=== PATIENT | female | born 1940 | race Hispanic/Latino ===

== ENCOUNTER 2016-07-02 17:57 | Emergency (ER) | payer MEDICARE, MEDICAID ==
[2016-07-02 17:58] VITALS: BMI 23.7
--- NOTE | 2016-07-02 18:28 | ED PDOC ---
Arrival/HPI - General Chief Complaint: Upper Extremity Problem/Injury Time Seen by Provider: 07/02/16 18:22 Historian: Patient - History of Present Illness Narrative History of Present Illness (Text): 07/02/16 18:25 This 76 yo female presents to this ED with family member c/o left shoulder pain x [employer]. Patient stated she tripped and fell down on the floor at home after tripping on a backpack. Patient denies head injury, neck pain, syncope, dizziness, or abnormal gait. Denies elbow pain, wrist, hand pain, back pain, hip pain, knee pain, or ankle pain. Denies abrasion. Time/Duration: Prior to Arrival Quality: Aching Context: Home Past Medical History - Provider Review Nursing Documentation Reviewed: Yes - Infectious Disease Hx of Infectious Diseases: None - Tetanus Immunization Tetanus Immunization: Unknown - Cardiac Hx Hypertension: Yes - Pulmonary Hx Respiratory Disorders: Yes (has home nebulizer machine) Hx Asthma: Yes Hx Chronic Obstructive Pulmonary Disease (COPD): Yes Hx Emphysema: Yes - HEENT Hx HEENT Disorder: Yes (eyeglasses) Hx Glaucoma: Yes - Musculoskeletal/Rheumatological Hx Falls: No - Gastrointestinal Hx Gastrointestinal Disorders: Yes Hx Colitis: Yes Other/Comment: dx with colitis around 5 yrs ago/has flare ups from time to time - Psychiatric Hx Anxiety: Yes Hx Depression: No Hx Emotional Abuse: No Hx Physical Abuse: No Hx Substance Use: No - Past Surgical History Past Surgical History: No Previous - Surgical History Hx Tonsillectomy: Yes - Anesthesia Hx Anesthesia: Yes Hx Anesthesia Reactions: No Hx Malignant Hyperthermia: No - Suicidal Assessment Feels Threatened In Home Enviroment: No Family/Social History - Physician Review Nursing Documentation Reviewed: Yes Family/Social History: No Known Family HX Smoking Status: Former Smoker Hx Alcohol Use: No Hx Substance Use: No Hx Substance Use Treatment: No Allergies/Home Meds Allergies/Adverse Reactions: Allergies FISH Allergy (Severe, Verified 07/02/16 18:12) SWELLING pt reports that she had fish sticks recently and had to come to the hospital due to the swelling pt previously had no allergies sulfur dioxide Allergy (Verified 07/02/16 18:13) ANAPHYLAXIS Home Medications: Home Meds Medication Instructions Recorded Confirmed Bimatoprost [Lumigan] 1 drop BOTHEYES HS 11/26/12 03/23/16 Mesalamine [Lialda] 1.2 gm PO TID 11/26/12 03/23/16 Albuterol Sulfate [Proair Hfa] 0.09 mg IH PRN PRN 03/23/16 03/23/16 Azithromycin [Zithromax] 250 mg PO DAILY 03/23/16 03/23/16 Clonidine HCl [Catapres] 0.1 mg PO Q8 03/23/16 03/23/16 Diclofenac Sodium [Voltaren] 1 % TP TID 03/23/16 03/23/16 Furosemide [Lasix] 40 mg PO DAILY 03/23/16 03/23/16 Levofloxacin [Levaquin] 500 tab PO DAILY 03/23/16 03/23/16 Methylprednisolone [Medrol Dose 0 mg PO DAILY 03/23/16 03/23/16 Pack (21 tabs)] Montelukast [Singulair] 10 mg PO DAILY 03/23/16 03/23/16 Rosuvastatin Calcium [Crestor] 10 mg PO DAILY 03/23/16 03/23/16 Telmisartan [Micardis] 80 mg PO DAILY 03/23/16 03/23/16 Tiotropium [Spiriva] 2 puff IH DAILY 03/23/16 03/23/16 amLODIPine [Norvasc] 10 mg PO DAILY 03/23/16 03/23/16 Review of Systems - Review of Systems Constitutional: Normal. absent: Fatigue, Weight Change, Fevers Eyes: Normal ENT: Normal Respiratory: Normal. absent: SOB, Cough Cardiovascular: Normal. absent: Chest Pain, Palpitations Gastrointestinal: Normal. absent: Abdominal Pain, Nausea, Vomiting Genitourinary Female: Normal. absent: Dysuria, Frequency, Hematuria Musculoskeletal: Other ((+) left shoulder pain) Skin: Normal. absent: Rash Neurological: Normal. absent: Headache, Dizziness, Focal Weakness, Gait Changes , Speech Changes, Facial Droop, Disequilibrium, Seizure Endocrine: Normal Hemo/Lymphatic: Normal Psychiatric: Normal Physical Exam Vital Signs Temp Pulse Resp BP Pulse Ox 07/02/16 18:09 97.4 F L 69 18 132/53 L 98 Temperature: Afebrile Blood Pressure: Normal Pulse: Regular Respiratory Rate: Normal Appearance: Positive for: Well-Appearing, Non-Toxic, Comfortable Pain Distress: None Mental Status: Positive for: Alert and Oriented X 3 - Systems Exam Head: Present: Atraumatic, Normocephalic, Other (No raccoon sign. no meza sign) Pupils: Present: PERRL, Other (No hyphema) Extroacular Muscles: Present: EOMI Conjunctiva: Present: Normal Ears: Present: Normal, NORMAL TM, Normal Canal, Other (No hemotympanum). No: Erythema, TM Bulging, Fluid, TM Perf Mouth: Present: Moist Mucous Membranes Pharnyx: Present: Normal Neck: Present: Normal Range of Motion, Trachea Midline. No: Meningeal Signs, MIDLINE TENDERNESS, Paraspinal Tenderness Respiratory/Chest: Present: Clear to Auscultation, Good Air Exchange. No: Respiratory Distress, Accessory Muscle Use, Wheezes, Decreased Breath Sounds, Rales, Retracting Cardiovascular: Present: Regular Rate and Rhythm, Normal S1, S2. No: Murmurs Abdomen: No: Tenderness Back: Present: Normal Inspection. No: CVA Tenderness, Midline Tenderness, Paraspinal Tenderness, Pain with Leg Raise Upper Extremity: Present: Normal ROM, NORMAL PULSES, Tenderness ((+) left anterior shoulder swelling and tender on palpation. ), Swelling (mild swelling left anterior shoulder.), Neurovascularly Intact, Capillary Refill < 2s, Other ( No elbow, clavicular, wrist, hand or fingers tenderness). No: Cyanosis, Edema Lower Extremity: Present: Normal Inspection. No: Edema Neurological: Present: GCS=15, CN II-XII Intact, Speech Normal, Motor Func Grossly Intact, Normal Sensory Function, Normal Cerebellar Funct, Norm Deep Tendon Reflexes, Gait Normal, Memory Normal Skin: Present: Warm, Dry, Normal Color. No: Rashes Psychiatric: Present: Alert, Oriented x 3 Medical Decision Making ED Course and Treatment: 07/02/16 18:31 Family member of patient refused to allow patient to have pain medication till patient gets a x-rays, and revaluated. 07/02/16 19:46 Patient does not want narcotic pain medication. She says she has gastritis, so she can not take NSAIDs. She agrees to take OTC Tylenol for pain as needed. I spoke with Dr. Marcos Orthopedist who agrees with Maegan, and to f/u his office in one week. Patient stated she has an orthopedist and she will f/u with ortho office tomorrow. Re-evaluation Time: 19:45 Reassessment Condition: Re-examined, Improved - RAD Interpretation Narrative RAD Interpretations (Text): 07/02/16 19:47 Shoulder x-rays: Head humerus Fx. minimum displaced. Radiology Orders: 07/02/16 18:22 SHOULDER LEFT [RAD] Stat - Medication Orders Current Medication Orders: Discontinued Medications Ketorolac Tromethamine (Toradol) 15 mg IM STAT STA Stop: 07/02/16 19:28 Last Admin: 07/02/16 19:38 Dose: 15 MG IM Administration Charges Document 07/02/16 19:38 RD (Rec: 07/02/16 19:38 RD [id number]) Injection Site MAR Injection Site Left Deltoid Charges for Administration # of IM Administrations 1 Disposition/Present on Arrival - Present on Arrival Any Indicators Present on Arrival: No History of DVT/PE: No History of Uncontrolled Diabetes: No Urinary Catheter: No History of Decub. Ulcer: No History Surgical Site Infection Following: None - Disposition Have Diagnosis and Disposition been Completed?: Yes Diagnosis: Humerus head fracture Disposition: HOME/ ROUTINE Disposition Time: 19:47 Patient Plan: Discharge Patient Problems: Current Active Problems Problem Status Diagnosed Asthmatic bronchitis Acute COPD exacerbation Acute Condition: GOOD Discharge Instructions (ExitCare): Arm Fracture in Adults (ED) Additional Instructions: Call Orthopedist doctor for follow up visit next week. Take OTC Tylenol for pain as needed. Do not remove arm sling, Return to emergency if symptoms worsen. Referrals: Jun Montana MD [Primary Care Provider] - Follow up with primary Jean Paul Marcos MD [Staff Provider] - Follow up with primary
[2016-07-02 18:29] VITALS: BP 132/53; PULSE 69; RESP 18; TEMP 97.4; O2SAT 98
--- NOTE | 2016-07-03 09:36 | RAD ---
PROCEDURE: Radiographs of the Left Shoulder HISTORY: pain s/p fall COMPARISON: 02/19/2015 FINDINGS: BONES: There is the fracture of the humeral neck. There is separation of a fragment along the lateral aspect of the humeral head. The articular surface is intact JOINTS: Normal. Glenohumeral and acromioclavicular joints preserved. No osteoarthritis. SOFT TISSUES: Normal. OTHER FINDINGS: None. IMPRESSION: There is the fracture of the humeral neck. There is separation of a fragment along the lateral aspect of the humeral head. The articular surface is intact
== END 2016-07-02 19:55 | disposition home or self-care (01) ==
LOC: ED 17:57
DX: S42.292A Other displaced fracture of upper end of left humerus, initial encounter for closed fracture (principal); W01.198A Fall on same level from slipping, tripping and stumbling with subsequent striking against other object, initial encounter; Y92.009 Unspecified place in unspecified non-institutional (private) residence as the place of occurrence of the external cause; I10 Essential (primary) hypertension; Z87.891 Personal history of nicotine dependence
CPT/HCPCS: 29240; 73030; 96372; 99282; J1885

== ENCOUNTER 2017-06-07 14:41 | Emergency (ER) | payer MEDICARE, MEDICAID ==
[2017-06-07 14:42] VITALS: BMI 23.7
[2017-06-07 15:16] VITALS: TEMP 97.8
--- NOTE | 2017-06-07 16:14 | RAD ---
HISTORY: Chest pain COMPARISON: 11/12/2016. FINDINGS: LUNGS: The lungs are hyperinflated and there is peribronchial thickening with chronic changes in both lungs. No focal consolidation. There is probable bronchiectasis in the right lower lobe. PLEURA: No significant pleural effusion identified, no pneumothorax apparent. CARDIOVASCULAR: Normal. OSSEOUS STRUCTURES: No significant abnormalities. VISUALIZED UPPER ABDOMEN: Normal. OTHER FINDINGS: None. IMPRESSION: No active pulmonary disease. Suspect bronchiectasis in the right lower lobe. COPD.
[2017-06-07 16:29] LABS: ALB/GLOB RATIO 1.2 (1.1-1.8); ALBUMIN 3.8 g/dL (3.0-4.8); ALT/SGPT 36 U/L (7-56); AST/SGOT 31 U/L (14-36); BLOOD UREA NITROGEN 13 mg/dL (7-21); CALCIUM 9.8 mg/dL (8.4-10.5); GFR AFRICAN-AMERICAN > 60; GFR NON-AFRICAN AMERICAN > 60
[2017-06-07] MEDS ORDERED: Sodium Chloride 0.9% 1,000 ML IV SCH (16:30)
[2017-06-07 16:35] LABS: TROPONIN I 0.03 ng/mL
[2017-06-07 16:40] LABS: BASO # 0.03 K/mm3 (0.0-2.0); BASO % 0.4 % (0.0-3.0); EOS # 0.3 (0.0-0.7); EOS % 4.5 % (1.5-5.0); GRAN # 5.28 (1.4-6.5); GRAN % 74.3 % (50.0-68.0); HEMOGLOBIN 12.7 g/dL (12.0-16.0); LYMPH # 0.8 (1.2-3.4); LYMPH % 11.1 % (22.0-35.0); MEAN CELL VOLUME 88.1 fl (80.0-105.0); MEAN CORPUSCULAR HEMOGLOBIN 29.7 pg (25.0-35.0); MEAN CORPUSCULAR HGB CONC 33.7 g/dl (31.0-37.0); MONO # 0.7 (0.1-0.6); MONO % 9.7 % (1.0-6.0); RBC 4.28 10^6/uL (3.5-6.1); RED CELL DISTRIBUTION WIDTH 13.2 % (11.5-14.5); WHITE BLOOD COUNT 7.1 10^3/ul (4.5-11.0)
[2017-06-07 17:08] LABS: B-TYPE NATRIURETIC PEPTIDE 225 pg/mL (0-450)
[2017-06-07 17:59] VITALS: RESP 18; O2SAT 98
--- NOTE | 2017-06-07 18:02 | ED PDOC ---
Arrival/HPI - General Chief Complaint: Shortness Of Breath Time Seen by Provider: 06/07/17 15:14 Historian: Patient - History of Present Illness Narrative History of Present Illness (Text): 06/07/17 17:56 Cammie Beltran is a 77 year old female who presents to the emergency department complaining of shortness of breath after walking outside and cold air was hitting her face today. Patient states that he has been experiencing intermittent shortness of breath for the past few weeks and coughing for 2-3 weeks that has stopped since. Patient denies any chest pain, abdominal pain, vomiting, fever, or any other complaints at this time. Time/Duration: 4-6 hours Symptom Onset: Gradual Symptom Course: Unchanged Activities at Onset: Light Context: Home Past Medical History - Provider Review Nursing Documentation Reviewed: Yes - Infectious Disease Hx of Infectious Diseases: None - Tetanus Immunization Tetanus Immunization: Unknown - Reproductive Menopause: Yes - Cardiac Hx Hypertension: Yes - Pulmonary Hx Respiratory Disorders: Yes (has home nebulizer machine) Hx Asthma: Yes Hx Chronic Obstructive Pulmonary Disease (COPD): Yes Hx Emphysema: Yes - HEENT Hx HEENT Disorder: Yes (eyeglasses) Hx Glaucoma: Yes - Musculoskeletal/Rheumatological Hx Falls: No - Gastrointestinal Hx Gastrointestinal Disorders: Yes Hx Colitis: Yes Other/Comment: dx with colitis around 5 yrs ago/has flare ups from time to time - Psychiatric Hx Anxiety: Yes Hx Depression: No Hx Emotional Abuse: No Hx Physical Abuse: No Hx Substance Use: No - Past Surgical History Past Surgical History: No Previous - Surgical History Hx Tonsillectomy: Yes - Anesthesia Hx Anesthesia: Yes Hx Anesthesia Reactions: No Hx Malignant Hyperthermia: No - Suicidal Assessment Feels Threatened In Home Enviroment: No Family/Social History - Physician Review Nursing Documentation Reviewed: Yes Family/Social History: No Known Family HX Smoking Status: Former Smoker Hx Alcohol Use: No Hx Substance Use: No Hx Substance Use Treatment: No Allergies/Home Meds Allergies/Adverse Reactions: Allergies FISH Allergy (Severe, Verified 07/02/16 18:12) SWELLING pt reports that she had fish sticks recently and had to come to the hospital due to the swelling pt previously had no allergies sulfur dioxide Allergy (Verified 07/02/16 18:13) ANAPHYLAXIS Home Medications: Home Meds Medication Instructions Recorded Confirmed Bimatoprost [Lumigan] 1 drop BOTHEYES 11/26/12 06/07/17 Mesalamine [Lialda] 1.2 gm PO TID 11/26/12 06/07/17 Albuterol Sulfate [Proair Hfa] 0.09 mg IH PRN PRN 03/23/16 06/07/17 Clonidine HCl [Catapres] 0.1 mg PO Q8 03/23/16 06/07/17 Diclofenac Sodium [Voltaren] 1 % TP TID 03/23/16 06/07/17 Furosemide [Lasix] 40 mg PO DAILY 03/23/16 06/07/17 Montelukast [Singulair] 10 mg PO DAILY 03/23/16 06/07/17 Rosuvastatin Calcium [Crestor] 10 mg PO DAILY 03/23/16 06/07/17 Telmisartan [Micardis] 80 mg PO DAILY 03/23/16 06/07/17 Tiotropium [Spiriva] 2 puff IH DAILY 03/23/16 06/07/17 amLODIPine [Norvasc] 10 mg PO DAILY 03/23/16 06/07/17 Hydralazine HCl 100 mg PO DAILY 06/07/17 06/07/17 hydrALAZINE [hydralazine 50 mg PO DAILY 06/07/17 06/07/17 Hydrochloride] Review of Systems - Physician Review All systems were reviewed & negative as marked: Yes - Review of Systems Constitutional: absent: Fevers, Night Sweats Eyes: absent: Vision Changes ENT: absent: Hearing Changes Respiratory: SOB Cardiovascular: absent: Chest Pain Gastrointestinal: absent: Abdominal Pain Genitourinary Female: absent: Dysuria, Frequency Musculoskeletal: absent: Arthralgias, Back Pain Skin: absent: Rash, Pruritis Neurological: absent: Headache, Dizziness Endocrine: absent: Diaphoresis Hemo/Lymphatic: absent: Adenopathy Psychiatric: absent: Anxiety, Depression Physical Exam Vital Signs Reviewed: Yes Vital Signs Temp Pulse Resp BP Pulse Ox 06/07/17 17:58 74 18 150/68 98 06/07/17 15:15 97.8 F 90 24 177/65 H 97 Temperature: Afebrile Blood Pressure: Hypertensive Pulse: Regular Respiratory Rate: Normal Appearance: Positive for: Well-Appearing, Non-Toxic, Comfortable Pain Distress: None Mental Status: Positive for: Alert and Oriented X 3 - Systems Exam Head: Present: Atraumatic, Normocephalic Pupils: Present: PERRL Extroacular Muscles: Present: EOMI Conjunctiva: Present: Normal Mouth: Present: Moist Mucous Membranes Neck: Present: Normal Range of Motion Respiratory/Chest: Present: Clear to Auscultation, Good Air Exchange. No: Respiratory Distress, Accessory Muscle Use Cardiovascular: Present: Regular Rate and Rhythm, Normal S1, S2. No: Murmurs Abdomen: Present: Normal Bowel Sounds. No: Tenderness, Distention, Peritoneal Signs Back: Present: Normal Inspection Upper Extremity: Present: Normal Inspection. No: Cyanosis, Edema Lower Extremity: Present: Normal Inspection. No: Edema Neurological: Present: GCS=15, CN II-XII Intact, Speech Normal Skin: Present: Warm, Dry, Normal Color. No: Rashes Psychiatric: Present: Alert, Oriented x 3, Normal Insight, Normal Concentration Medical Decision Making ED Course and Treatment: 06/07/17 18:03 Impression: 77 year old female complaining of shortness of breath today. Plan: -- EKG -- Urinalysis -- Labs -- Reassess and disposition Prior Visits: Notes and results from previous visits were reviewed. Patient was last seen in the emergency department on 07/02/16 for left shoulder pain. Patient was discharged home. Progress Notes: - Lab Interpretations Lab Results: 06/07/17 15:45 06/07/17 15:45 Lab Results 06/07/17 15:45: Sodium 128 L, Potassium 3.7, Chloride 92 L, Carbon Dioxide 28, Anion Gap 11, BUN 13, Creatinine 0.5 L, Est GFR ( Amer) > 60, Est GFR ( Non-Af Amer) > 60, Random Glucose 118 H, Calcium 9.8, Magnesium 2.0, Total Bilirubin 0.5, AST 31, ALT 36, Alkaline Phosphatase 71, Lactate Dehydrogenase 434, Total Creatine Kinase 103, Troponin I 0.03 D, NT-Pro-B Natriuret Pep 225, Total Protein 6.9, Albumin 3.8, Globulin 3.1, Albumin/Globulin Ratio 1.2 06/07/17 15:45: WBC 7.1 D, RBC 4.28, Hgb 12.7, Hct 37.7, MCV 88.1, MCH 29.7, MCHC 33.7, RDW 13.2, Plt Count 250, MPV 9.0, Gran % 74.3 H, Lymph % (Auto) 11.1 L, [place] % (Auto) 9.7 H, Eos % (Auto) 4.5, Baso % (Auto) 0.4, Gran # 5.28, Lymph # (Auto) 0.8 L, [place] # (Auto) 0.7 H, Eos # (Auto) 0.3, Baso # (Auto) 0.03 I have reviewed the lab results: Yes - RAD Interpretation Radiology Orders: 06/07/17 15:21 CHEST PORTABLE [RAD] Stat - Medication Orders Current Medication Orders: Sodium Chloride (Sodium Chloride 0.9%) 1,000 mls @ 100 mls/hr IV .Q10H BARBARA Last Admin: 06/07/17 17:00 Dose: 100 mls/hr eMAR Start Stop Document 06/07/17 17:00 MALOU (Rec: 06/07/17 17:38 [id number]) Intravenous Solution Start Date 06/07/17 Start Time 17:00 - Scribe Statement The provider has reviewed the documentation as recorded by the [facility] Provider Scribe Attestation: All medical record entries made by the Scribe were at my direction and personally dictated by me. I have reviewed the chart and agree that the record accurately reflects my personal performance of the history, physical exam, medical decision making, and the department course for this patient. I have also personally directed, reviewed, and agree with the discharge instructions and disposition. Disposition/Present on Arrival - Present on Arrival Any Indicators Present on Arrival: No History of DVT/PE: No History of Uncontrolled Diabetes: No Urinary Catheter: No History of Decub. Ulcer: No History Surgical Site Infection Following: None - Disposition Have Diagnosis and Disposition been Completed?: Yes Diagnosis: COPD (chronic obstructive pulmonary disease) Disposition: HOME/ ROUTINE Disposition Time: 17:00 Patient Problems: Current Active Problems Problem Status Onset COPD (chronic obstructive pulmonary disease) Acute Condition: GOOD Discharge Instructions (ExitCare): COPD Including Emphysema (DC) Additional Instructions: Thank you for letting us take care of you today. The emergency medical care you received today was directed at your acute symptoms. If you were prescribed any medication, please fill it and take as directed. It may take several days for your symptoms to resolve. Return to the Emergency Department if your symptoms worsen, do not improve, or if you have any other problems. Please contact your doctor or call one of the physicians/clinics you have been referred to that are listed on the Patient Visit Information form that is included in your discharge packet. Bring any paperwork you were given at discharge with you along with any medications you are taking to your follow up visit. Our treatment cannot replace ongoing medical care by a primary care provider (PCP) outside of the emergency department. Thank you for allowing the [facility] team to be part of your care today. Follow up with your doctor tomorrow as scheduled. Return to the emergency room if you have any concerns. Referrals: Mele Lawson MD [Staff Provider] - Follow up with primary Sherine Maria MD [Primary Care Provider] - Follow up with primary Forms: [employer] (Yoruba)
[2017-06-07 18:38] LABS: PH,URINE 6.5 (4.7-8.0); URINE BILIRUBIN NEGATIVE (NEGATIVE); URINE BLOOD NEGATIVE (NEGATIVE); URINE GLUCOSE (UA) NEGATIVE (NEGATIVE); URINE LEUKOCYTE ESTERASE NEGATIVE Leu/uL (NEGATIVE); URINE NITRATE NEGATIVE (NEGATIVE); URINE PROTEIN NEGATIVE mg/dL (<30 mg/dL); URINE UROBILINOGEN 0.2 E.U./dL (<1 E.U./dL)
[2017-06-07 18:58] LABS: URINE APPEARANCE CLEAR (CLEAR); URINE COLOR LIGHT YELLOW (YELLOW)
[2017-06-07 19:12] VITALS: BP 155/78; PULSE 72
--- NOTE | 2017-06-07 22:26 | CARD ---
APPROVED REPORT EKG Measurement Heart [id number] <Conclusion> Normal sinus rhythm Normal ECG
== END 2017-06-07 19:12 | disposition home or self-care (01) ==
LOC: ED 14:41
DX: J44.9 Chronic obstructive pulmonary disease, unspecified (principal); I10 Essential (primary) hypertension; Z87.891 Personal history of nicotine dependence
CPT/HCPCS: 71045; 80053; 81003; 82550; 83615; 83735; 83880; 84484; 85025; 93005; 99284; J7040

== ENCOUNTER 2017-06-10 13:46 | Inpatient (IN) | payer MEDICARE, MEDICAID ==
[2017-06-10 14:17] VITALS: BMI 22.4
[2017-06-10 15:01] LABS: VENOUS BLOOD GAS BASE EXCESS 1.7 mmol/L (0.0-2.0); VENOUS BLOOD GAS PO2 43 mm/Hg (30-55); VENOUS BLOOD PH 7.41 (7.32-7.43)
[2017-06-10 15:05] LABS: BASO # 0.01 K/mm3 (0.0-2.0); BASO % 0.1 % (0.0-3.0); EOS # 0.4 (0.0-0.7); EOS % 5.3 % (1.5-5.0); GRAN # 6.97 (1.4-6.5); GRAN % 88.6 % (50.0-68.0); HEMOGLOBIN 13.5 g/dL (12.0-16.0); LYMPH # 0.2 (1.2-3.4); LYMPH % 2.2 % (22.0-35.0); MEAN CELL VOLUME 86.8 fl (80.0-105.0); MEAN CORPUSCULAR HEMOGLOBIN 29.8 pg (25.0-35.0); MEAN CORPUSCULAR HGB CONC 34.4 g/dl (31.0-37.0); MEAN PLATELET VOLUME 9.3 fl (7.0-11.0); MONO # 0.3 (0.1-0.6); MONO % 3.8 % (1.0-6.0); PLATELET COUNT 118 10^3/uL (120.0-450.0); RBC 4.53 10^6/uL (3.5-6.1); RED CELL DISTRIBUTION WIDTH 13.4 % (11.5-14.5); WHITE BLOOD COUNT 7.9 10^3/ul (4.5-11.0)
[2017-06-10 15:24] LABS: ALB/GLOB RATIO 1.1 (1.1-1.8); ALBUMIN 3.5 g/dL (3.0-4.8); ALT/SGPT 114 U/L (7-56); AST/SGOT 109 U/L (14-36); BLOOD UREA NITROGEN 29 mg/dL (7-21); CALCIUM 9.2 mg/dL (8.4-10.5); GFR AFRICAN-AMERICAN > 60; GFR NON-AFRICAN AMERICAN > 60; LIPASE 66 U/L (23-300)
[2017-06-10 15:25] LABS: B-TYPE NATRIURETIC PEPTIDE 438 pg/mL (0-450); TROPONIN I 0.11 ng/mL
[2017-06-10] MEDS ORDERED: Iohexol 350 MG/100 ML VIAL ONE (15:47)
--- NOTE | 2017-06-10 15:55 | RAD ---
HISTORY: fever - r/o infiltrate COMPARISON: 06/07/2017. FINDINGS: LUNGS: The lungs are hyperinflated and there is peribronchial thickening with chronic changes in both lungs. No focal consolidation. PLEURA: No significant pleural effusion identified, no pneumothorax apparent. CARDIOVASCULAR: Normal. OSSEOUS STRUCTURES: No significant abnormalities. VISUALIZED UPPER ABDOMEN: Normal. OTHER FINDINGS: None. IMPRESSION: No active pulmonary disease. COPD.
[2017-06-10 16:06] LABS: CK-MB 3.8 ng/mL (0.0-3.6)
[2017-06-10 16:07] LABS: NEUTROPHIL 76 % (50.0-70.0)
[2017-06-10 16:08] LABS: EOSINOPHIL 4 % (0.0-3.0); LYMPHOCYTE 2 % (22.0-35.0); MONOCYTE 4 % (1.0-6.0)
[2017-06-10 16:10] LABS: BAND 14 % (0-2)
[2017-06-10] MEDS: Sodium Chloride 0.9% 1,000 ML IV SCH (16:17)
[2017-06-10] MEDS ORDERED: cefTRIAXone 1 gm 1 GM/100 ML BAG IVPB SCH (17:00)
--- NOTE | 2017-06-10 17:14 | CT ---
PROCEDURE: CT HEAD WITHOUT CONTRAST. HISTORY: r/o ICH COMPARISON: Noncontrast head CT performed 02/19/15 TECHNIQUE: Axial computed tomography images were obtained through the head/brain without intravenous contrast. Radiation dose: Total exam DLP = 897.56 mGy-cm. This CT exam was performed using one or more of the following dose reduction techniques: Automated exposure control, adjustment of the mA and/or kV according to patient size, and/or use of iterative reconstruction technique. FINDINGS: Streak artifact obscures evaluation of the skullbase. The brain stem is not well-visualized due to streak artifact. HEMORRHAGE: No intracranial hemorrhage. BRAIN: Diffuse atrophy with prominence of the ventricles and sulci noted. No mass effect or edema. Dense intracranial atherosclerosis. Moderate scattered periventricular and subcortical white matter hypodensities, which are nonspecific, but often seen with chronic microvascular ischemic disease. Please note that MRI with diffusion imaging is more sensitive in the detection of acute ischemic event. VENTRICLES: No hydrocephalus. CALVARIUM: Unremarkable. PARANASAL SINUSES: Unremarkable as visualized. No significant inflammatory changes. MASTOID AIR CELLS: Unremarkable as visualized. No inflammatory changes. OTHER FINDINGS: None. IMPRESSION: Streak artifact obscures evaluation of the skullbase. Moderate scattered nonspecific white matter changes.
--- NOTE | 2017-06-10 17:31 | CT ---
PROCEDURE: CT Abdomen and Pelvis with contrast HISTORY: diffuse abdominal pain COMPARISON: None. TECHNIQUE: Contrast dose: 100 cc Omnipaque 350. Radiation dose: Total exam DLP = 711.28 mGy-cm. This CT exam was performed using one or more of the following dose reduction techniques: Automated exposure control, adjustment of the mA and/or kV according to patient size, and/or use of iterative reconstruction technique. FINDINGS: LOWER THORAX: Unremarkable. LIVER: Unremarkable. No gross lesion or ductal dilatation. GALLBLADDER AND BILE DUCTS: Unremarkable. PANCREAS: Unremarkable. No gross lesion or ductal dilatation. SPLEEN: Unremarkable. ADRENALS: Unremarkable. No mass. KIDNEYS AND URETERS: Unremarkable. No hydronephrosis. No solid mass. VASCULATURE: Unremarkable. No aortic aneurysm. BOWEL: Unremarkable. No obstruction. No gross mural thickening. APPENDIX: Normal appendix. PERITONEUM: Unremarkable. No free fluid. No free air. LYMPH NODES: Unremarkable. No enlarged lymph nodes. BLADDER: Unremarkable. REPRODUCTIVE: Unremarkable. BONES: No acute fracture. 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 OTHER FINDINGS: None. IMPRESSION: No acute findings related to/accounting for the clinical presentation.
--- NOTE | 2017-06-10 17:53 | ED PDOC ---
Arrival/HPI - General Chief Complaint: Altered Mental Status Time Seen by Provider: 06/10/17 13:55 Historian: Patient - History of Present Illness Narrative History of Present Illness (Text): 06/10/17 14:25 A 77 year old female, whose past medical history includes hypertension, COPD, asthma, emphysema, and anxiety, is brought in by family and presents to the emergency department with change in mental status. Patient reports no physical complaints. Denies any fever, cough, chest pain, shortness of breath, or any other complaints. Patient currently answering questions appropriately. PMD: Dr. Maria Past Medical History - Provider Review Nursing Documentation Reviewed: Yes - Infectious Disease Hx of Infectious Diseases: None - Tetanus Immunization Tetanus Immunization: Unknown - Reproductive Menopause: Yes - Cardiac Hx Hypertension: Yes - Pulmonary Hx Respiratory Disorders: Yes (has home nebulizer machine) Hx Asthma: Yes Hx Chronic Obstructive Pulmonary Disease (COPD): Yes Hx Emphysema: Yes - HEENT Hx HEENT Disorder: Yes (eyeglasses) Hx Glaucoma: Yes - Musculoskeletal/Rheumatological Hx Falls: No - Gastrointestinal Hx Gastrointestinal Disorders: Yes Hx Colitis: Yes Other/Comment: dx with colitis around 5 yrs ago/has flare ups from time to time - Psychiatric Hx Anxiety: Yes Hx Depression: No Hx Emotional Abuse: No Hx Physical Abuse: No Hx Substance Use: No - Past Surgical History Past Surgical History: No Previous - Surgical History Hx Tonsillectomy: Yes - Anesthesia Hx Anesthesia: Yes Hx Anesthesia Reactions: No Hx Malignant Hyperthermia: No - Suicidal Assessment Feels Threatened In Home Enviroment: No Family/Social History - Physician Review Nursing Documentation Reviewed: Yes Family/Social History: No Known Family HX Smoking Status: Former Smoker Hx Alcohol Use: No Hx Substance Use: No Hx Substance Use Treatment: No Allergies/Home Meds Allergies/Adverse Reactions: Allergies FISH Allergy (Severe, Verified 07/02/16 18:12) SWELLING pt reports that she had fish sticks recently and had to come to the hospital due to the swelling pt previously had no allergies sulfur dioxide Allergy (Verified 07/02/16 18:13) ANAPHYLAXIS Home Medications: Home Meds Medication Instructions Recorded Confirmed Telmisartan [Micardis] 80 mg PO DAILY 03/23/16 06/10/17 amLODIPine [Norvasc] 10 mg PO DAILY 03/23/16 06/10/17 hydrALAZINE [hydralazine 100 mg PO DAILY 06/07/17 06/10/17 Hydrochloride] Review of Systems - Physician Review All systems were reviewed & negative as marked: Yes - Review of Systems Constitutional: absent: Fevers Respiratory: absent: SOB, Cough Cardiovascular: absent: Chest Pain Psychiatric: Other (change in mental status) Physical Exam Vital Signs Reviewed: Yes Vital Signs Temp Pulse Resp BP Pulse Ox 06/10/17 21:06 74 17 128/50 L 96 06/10/17 16:33 101.4 F H 06/10/17 16:29 97.5 F L 86 20 109/52 L 95 06/10/17 15:55 101.4 F H 06/10/17 15:32 92 H 18 118/58 L 95 06/10/17 14:16 102.4 F H 90 19 146/51 L 95 Temperature: Afebrile Blood Pressure: Normal Pulse: Regular Respiratory Rate: Normal Appearance: Positive for: Well-Appearing Pain Distress: None Mental Status: Positive for: Alert and Oriented X 3 - Systems Exam Head: Present: Atraumatic, Normocephalic Pupils: Present: PERRL Extroacular Muscles: Present: EOMI Conjunctiva: Present: Normal Mouth: Present: Dry Neck: Present: Normal Range of Motion Respiratory/Chest: Present: Clear to Auscultation, Good Air Exchange. No: Respiratory Distress, Accessory Muscle Use Cardiovascular: Present: Regular Rate and Rhythm, Normal S1, S2. No: Murmurs Abdomen: Present: Tenderness (diffused abdominal tenderness) Back: Present: Normal Inspection Upper Extremity: Present: Normal Inspection. No: Cyanosis, Edema Lower Extremity: Present: Normal Inspection. No: Edema Neurological: Present: GCS=15, CN II-XII Intact, Speech Normal Skin: Present: Warm, Dry, Normal Color. No: Rashes Psychiatric: Present: Alert, Oriented x 3, Normal Insight, Normal Concentration Medical Decision Making ED Course and Treatment: 06/10/17 14:30 Impression: 77 year old female with change in mental status. Physical exam shows dry mucous membranes; diffuse abdominal tenderness. Plan: -- EKG -- Echo -- Doxycycline IVPB's -- Aspirin -- IV Fluids -- Lovenox -- Tylenol -- Lopressor -- Rocephin -- Blood Culture -- Urine Culture -- Urinalysis -- Reassess and disposition Prior Visits: Notes and results from previous visits were reviewed. Patient was last seen in the emergency department on 06/07/2017 for intermittent shortness of breath. Patient was d/c home. Progress Notes: EKG: Ordered, reviewed, and independently interpreted the EKG. Rate : 99 BPM Rhythm : NSR Interpretation : No ST-segment elevations or depressions, no T-wave inversions, normal intervals. Comparison : No previous EKG for comparison. 06/10/2017 14:[address] Mosquera and Dr. Dillard, whom will admit patient into telemetry. Heparin drip started due to elevated Troponin. - Lab Interpretations Microbiology Results: Microbiology Results 06/10/17 14:45 Blood Blood Culture - Preliminary NO GROWTH AFTER 24 HOURS 06/10/17 14:20 Blood Blood Culture - Preliminary NO GROWTH AFTER 24 HOURS Lab Results: 06/10/17 14:20 06/10/17 14:20 Lab Results 06/10/17 16:31: Influenza Typ A,B (EIA) Negative for flu a/b 06/10/17 14:20: pO2 43, VBG pH 7.41, VBG pCO2 42.0, VBG HCO3 26.6, VBG Total CO2 27.9, VBG O2 Sat (Calc) 85.7 H, VBG Base Excess 1.7, VBG Potassium 3.8, Sodium 127.0 L, Chloride 94.0 L, Glucose 116 H, Lactate 1.4, FiO2 21.0, Venous Blood Potassium 3.8 06/10/17 14:20: Sodium 129 L, Chloride 94 L, Potassium 3.8, Carbon Dioxide 26, Anion Gap 13, BUN 29 H, Creatinine 0.9, Est GFR ( Amer) > 60, Est GFR ( Non-Af Amer) > 60, Random Glucose 115 H, Calcium 9.2, Magnesium 2.0, Total Bilirubin 0.5, AST 109 H D, ALT 114 H, Alkaline Phosphatase 100, Lactate Dehydrogenase 860 H, Total Creatine Kinase 430 H, CK-MB (CK-2) 3.8 H, CK-MB (CK- 2) % Cancelled, Troponin I 0.11 D, NT-Pro-B Natriuret Pep 438, Total Protein 6.6, Albumin 3.5, Globulin 3.1, Albumin/Globulin Ratio 1.1, Lipase 66 06/10/17 14:20: WBC 7.9, RBC 4.53, Hgb 13.5, Hct 39.3, MCV 86.8, MCH 29.8, MCHC 34.4, RDW 13.4, Plt Count 118 L, MPV 9.3, Gran % 88.6 H, Lymph % (Auto) 2.2 L, Worth % (Auto) 3.8, Eos % (Auto) 5.3 H, Baso % (Auto) 0.1, Gran # 6.97 H, Lymph # (Auto) 0.2 L, Worth # (Auto) 0.3, Eos # (Auto) 0.4, Baso # (Auto) 0.01, Neutrophils % (Manual) 76 H, Band Neutrophils % 14 H*, Lymphocytes % (Manual) 2 L, Monocytes % (Manual) 4, Eosinophils % (Manual) 4 H - RAD Interpretation Radiology Orders: 06/10/17 14:22 CHEST PORTABLE [RAD] Stat 06/10/17 15:19 ABD & PELVIS IV CONTRAST ONLY [CT] Stat HEAD W/O CONTRAST [CT] Stat - Medication Orders Current Medication Orders: Albuterol/Ipratropium (Duoneb 3 Mg/0.5 Mg (3 Ml) Ud) 3 ml IH [id number] [facility] Last Admin: 06/11/17 13:19 Dose: Aspirin (Ecotrin) 81 mg PO DAILY [facility] Last Admin: 06/11/17 09:50 Dose: 81 mg Enoxaparin Sodium (Lovenox) 60 mg SC Q12 [facility] PRN Reason: Protocol Last Admin: 06/11/17 09:50 Dose: 60 mg Subcutaneous Administrations Document 06/11/17 09:50 KL (Rec: 06/11/17 09:51 [id number]) Injection Site MAR Injection Site Right Abdomen Charges for Administration # of Subcutaneous Administrations 1 Sodium Chloride (Sodium Chloride 0.9%) 1,000 mls @ 100 mls/hr IV .Q10H [facility] Last Admin: 06/11/17 15:14 Dose: 100 mls/hr eMAR Start Stop Document 06/11/17 15:14 KL (Rec: 06/11/17 15:14 KL [id number]) Intravenous Solution Start Date 06/11/17 Start Time 15:14 Doxycycline Hyclate 100 mg/ (Sodium Chloride) 100 mls @ 100 mls/hr IVPB Q12 BARBARA PRN Reason: Protocol Last Admin: 06/11/17 12:38 Dose: 100 mls/hr eMAR Start Stop Document 06/11/17 12:38 KL (Rec: 06/11/17 12:39 KL [id number]) Intravenous Solution Start Date 06/11/17 Start Time 12:39 Meropenem (Merrem Iv 1 Gm Premix) 50 mls @ 100 mls/hr IVPB Q8 BARBARA PRN Reason: Protocol Stop: 06/19/17 22:01 Last Admin: 06/11/17 15:12 Dose: 100 mls/hr eMAR Start Stop Document 06/11/17 15:12 KL (Rec: 06/11/17 15:12 KL [id number]) Intravenous Solution Start Date 06/11/17 Start Time 15:12 Vancomycin HCl (Vancomycin 1gm) 1 gm in 250 mls @ 167 mls/hr IVPB Q12H BARBARA PRN Reason: Protocol Stop: 06/19/17 21:16 Last Admin: 06/11/17 09:49 Dose: 167 mls/hr eMAR Start Stop Document 06/11/17 09:49 KL (Rec: 06/11/17 09:50 KL [id number]) Intravenous Solution Start Date 06/11/17 Start Time 09:50 Metoprolol Tartrate (Lopressor) 25 mg PO BID [facility] Last Admin: 06/11/17 17:43 Dose: 25 mg MAR Pulse and Blood Pressure Document 06/11/17 17:43 KL (Rec: 06/11/17 17:43 KL [id number]) Pulse Pulse Rate (60-90) 68 Blood Pressure Blood Pressure (100/60-150/90) 112/60 Oseltamivir Phosphate (Tamiflu Cap) 75 mg PO BID BARBARA PRN Reason: Protocol Stop: 06/16/17 11:03 Last Admin: 06/11/17 17:43 Dose: Not Given Non-Admin Reason: Patient Refused Discontinued Medications Acetaminophen (Tylenol 325mg Tab) 975 mg PO STAT STA Stop: 06/10/17 14:24 Last Admin: 06/10/17 14:55 Dose: 975 mg MAR Pain/Vitals Document 06/10/17 14:55 SZA (Rec: 06/10/17 14:55 [id number]) Pain Reassessment Is This A Pain ReAssessment? No Sleep Is patient sleeping during reassessment? No Presence of Pain Presence of Pain No Re-Assess: BHARGAVI Pain/Vitals Document 06/10/17 15:55 OCS (Rec: 06/10/17 16:35 OCS [id number] Vitals Temperature (97.6 F-99.6 F) 101.4 F Temperature Source Rectal Albuterol/Ipratropium (Duoneb 3 Mg/0.5 Mg (3 Ml) Ud) 3 ml IH STAT STA Stop: 06/11/17 00:23 Last Admin: 06/11/17 02:24 Dose: Aspirin (Aspirin) 325 mg PO STAT STA Stop: 06/10/17 15:53 Last Admin: 06/10/17 16:17 Dose: 325 mg Ceftriaxone Sodium (Rocephin 1 Gram Ivpb) 1 gm in 100 mls @ 100 mls/hr IVPB DAILY BARBARA PRN Reason: Protocol Stop: 06/12/17 23:59 Last Admin: 06/10/17 19:37 Dose: 100 mls/hr eMAR Start Stop Document 06/10/17 19:37 IT (Rec: 06/10/17 19:37 IT [id number]) Intravenous Solution Start Date 06/10/17 Start Time 19:37 End Date 06/10/17 - Scribe Statement The provider has reviewed the documentation as recorded by the Eliazaribdaniel Baumann Provider Scribe Attestation: All medical record entries made by the Scribe were at my direction and personally dictated by me. I have reviewed the chart and agree that the record accurately reflects my personal performance of the history, physical exam, medical decision making, and the department course for this patient. I have also personally directed, reviewed, and agree with the discharge instructions and disposition. Disposition/Present on Arrival - Present on Arrival Any Indicators Present on Arrival: No History of DVT/PE: No History of Uncontrolled Diabetes: No Urinary Catheter: No History of Decub. Ulcer: No History Surgical Site Infection Following: None - Disposition Have Diagnosis and Disposition been Completed?: Yes Diagnosis: Fever, Elevated troponin, Abdominal pain Disposition: HOSPITALIZED Disposition Time: 16:10 Condition: FAIR
--- NOTE | 2017-06-10 17:55 | CARD ---
APPROVED REPORT EKG Measurement Heart [id number] <Conclusion> Normal sinus rhythm Possible Left atrial enlargement Borderline ECG
[2017-06-11] MEDS ORDERED: Albuterol-Ipratrop 3 mg / 0.5 (3 ml) UD IH STA (00:22)
[2017-06-11] MEDS: Vancomycin 1gm in NS 250ml 1 GM/250 ML BAG IVPB SCH ×3 (00:30→21:29)
[2017-06-11] MEDS: Enoxaparin 60 mg Syringe SC SCH ×3 (00:30→21:20)
[2017-06-11] MEDS: Meropenem IV 1 gm in NS 50 ML IVPB SCH ×4 (00:30→21:21)
[2017-06-11] MEDS: Albuterol-Ipratrop 3 mg / 0.5 (3 ml) UD IH SCH ×4 (01:10→22:03)
[2017-06-11] MEDS: Sodium Chloride 0.9% 1,000 ML IV SCH ×3 (02:25→15:14)
--- NOTE | 2017-06-11 02:49 | CON ---
DATE: 06/10/2017 CARDIOLOGY CONSULTATION REASON FOR CONSULTATION: Positive troponin, admitted with altered mental status and fever of 103. BRIEF CLINICAL HISTORY: This is a 77-year-old female with past medical history of emphysema, ex-smoker, quit 25 years ago, brought by the family because of altered mental status, unable to recognize the daughter, acting little bit unusual. Patient was brought to the emergency room with 103 fever. Basic blood workup was sent. Troponin was found to be 0.1, so the cardiology consult was called. Patient's family is at the bedside. Patient denies any chest pain. Denies any palpitation, but she gets short of breath with exertion. History of longstanding emphysema because of 2-pack smoking for more than 40 years, also history of hypertension. PAST MEDICAL HISTORY: Significant for COPD, hypertension. SOCIAL HISTORY: Denies any smoking now, quit 40 years ago. Denies any history of substance abuse or any history of alcohol abuse. FAMILY HISTORY: Noncontributory. CURRENT MEDICATIONS: Patient is taking amlodipine 10 mg daily, Micardis 80 mg, another Micardis 80/12.5 mg with hydrochlorothiazide, hydralazine 100 mg twice daily, being followed by Dr. Sherine Maria. ALLERGIES: ALLERGIC TO FISH, ALLERGIC TO SULFA DRUGS. REVIEW OF SYSTEMS: As per HPI. Complaining of shortness of breath and dyspnea on exertion going one flight up, since patient has a history of emphysema as the daughter mentioned. Patient was here three to four days ago with cough and was discharged home and now again admitted this morning with altered mental status and fever of 102.4. Currently, patient is in the ER bed 4. Denies any chest pain, shortness of breath, or any palpitation. PHYSICAL EXAMINATION: GENERAL: Height of the patient 5 feet 5 inches, weight of the patient 135 pounds, body mass index 22.5 kg/m2. VITAL SIGNS: Temperature 102.4 rectal, heart rate 90, blood pressure 109/52. HEENT: PERRLA. Extraocular muscles intact. NECK: Supple. No carotid bruits or thyromegaly. CHEST: Clear to auscultation. HEART: S1 and S2 regular. ABDOMEN: Soft. EXTREMITIES: Clubbing and cyanosis negative. LABORATORY DATA: Blood workup as follows. WBC 7.9, hemoglobin 13.5, hematocrit 39.3, platelet count 118. Chemistry shows sodium 129, potassium 3.8, chloride 94, carbon dioxide 26, anion gap of 13, BUN 29, creatinine 0.9. AST 109, ALT 114, alkaline phosphatase 100. Lactate 840, CPK 430, CK-MB 3.8, troponin 0.11. EKG shows normal sinus. No acute ST-T changes. Also patient has bands of 14. ASSESSMENT: A 77-year-old female with past medical history of hypertension, emphysema, came in with altered mental status, 102.4 fever, rule out sepsis, bandemia of 14. Troponin could be secondary to true underlying coronary artery disease versus demand and supply ischemia. But I doubt all these things are attributed secondary to myocardial infarction. Even if the patient is by subsequent troponin ruled in, but there is probably something going on. Patient is hyponatremic, altered mental status, septic. Discussed in length with the patient's family, also discussed with emergency room physician, Dr. Humza Mcelroy. Patient is going for CAT scan of the head and CAT scan of the abdomen to localize where the infection is coming. Also CAT scan of the head to rule out bleed. If the CAT scan of the head is negative for bleed, we will start Lovenox 1 mg/kg q. 12. We will start low dose of beta-casandra, normal saline, shukla culture, start Rocephin, and continue baby aspirin. We will get echocardiogram in the morning. We will get lipid profile, hemoglobin A1c. Further recommendation depending on hospital course. Overall, patient's condition is critical. Prognosis is extremely guarded. We will follow with you. Thank you, Dr. Mosquera, for providing us the opportunity in taking care of the patient, Cammie Beltran. Angie Dillard MD
--- NOTE | 2017-06-11 02:56 | HP ---
HISTORY OF PRESENT ILLNESS: The patient is a 77-year-old, known to me from a previous admission, was seen in [facility] on 06/07/2017 with symptoms of upper respiratory tract infection. She also had cough, congestion, and was short of breath, so she was seen by ER physician and was sent home, but the patient states she started to have chest pains and dizziness with feeling of nausea, so she came back to emergency room for further evaluation. She does complain of feeling lightheaded and dizzy. PAST MEDICAL HISTORY: Significant for: 1. COPD 2. Hypertension. 3. Recurrent asthmatic bronchitis. ALLERGIES: SHE IS ALLERGIC TO FISH. FAMILY HISTORY: Not relevant. SOCIAL HISTORY: She lives with her daughter. She was a smoker, but quit some time ago. MEDICATIONS AT HOME: She is on Norvasc 10 mg daily, Micardis mg daily, hydralazine 100 mg daily. PHYSICAL EXAMINATION: GENERAL: On examination, she is awake, alert, oriented. VITAL SIGNS: Temperature of 102.4, pulse 90, respirations 19, and blood pressure 109/52. LUNGS: Bilateral fair airflow. No rhonchi or crackles. HEART: S1 and S2 audible. ABDOMEN: Soft. Slight epigastric discomfort. NEUROLOGIC: The patient is awake and alert. Able to communicate. LABORATORY DATA: Sodium 129, potassium 3.8, chloride 94, CO2 of 26, BUN 29, creatinine 0.9, blood sugar of 115, AST 109, ALT 114, LDH is 860, CPK is 430, MB is 3.8. Stool test is pending. CT scan of the abdomen and pelvis is pending. X-ray of the chest shows no active pulmonary disease. ASSESSMENT AND PLAN: 1. High-grade fever, source unknown yet. 2. Asthmatic bronchitis, rule out viral syndrome. 3. Intermittent chest pain, rule out underlying coronary ischemia. 4. Hypertension. 5. Hyperlipidemia. 6. Hyponatremia. 7. Mild renal insufficiency. 8. Abnormal liver function tests. PLAN: We will follow up CT of the abdomen and pelvis, start the patient on IV fluids, start her on IV antibiotics. Blood culture and urine culture are sent. We will consult ID, Dr. Aaron. Danna Mosquera MD [facility] # [phone]
[2017-06-11 07:52] LABS: BASO # 0.02 K/mm3 (0.0-2.0); BASO % 0.4 % (0.0-3.0); EOS # 0.5 (0.0-0.7); EOS % 9.2 % (1.5-5.0); GRAN # 3.93 (1.4-6.5); GRAN % 80.6 % (50.0-68.0); HEMOGLOBIN 12.6 g/dL (12.0-16.0); LYMPH # 0.2 (1.2-3.4); LYMPH % 4.7 % (22.0-35.0); MEAN CELL VOLUME 87.1 fl (80.0-105.0); MEAN CORPUSCULAR HEMOGLOBIN 29.1 pg (25.0-35.0); MEAN CORPUSCULAR HGB CONC 33.4 g/dl (31.0-37.0); MEAN PLATELET VOLUME 9.7 fl (7.0-11.0); MONO # 0.3 (0.1-0.6); MONO % 5.1 % (1.0-6.0); RBC 4.33 10^6/uL (3.5-6.1); RED CELL DISTRIBUTION WIDTH 13.5 % (11.5-14.5); WHITE BLOOD COUNT 4.9 10^3/ul (4.5-11.0)
[2017-06-11 07:59] LABS: ALBUMIN 2.6 g/dL (3.0-4.8); ALT/SGPT 121 U/L (7-56); AST/SGOT 83 U/L (14-36); BLOOD UREA NITROGEN 19 mg/dL (7-21); CALCIUM 8.2 mg/dL (8.4-10.5); GFR AFRICAN-AMERICAN > 60; GFR NON-AFRICAN AMERICAN > 60; HDL CHOLESTEROL 36 mg/dL (29-60)
--- NOTE | 2017-06-11 08:20 | CP.PCM.PN ---
Subjective - Date & Time of Evaluation Date of Evaluation: 06/11/17 Time of Evaluation: 07:35 - Subjective Subjective: Seen and examined by me and Dr Samano Reason for consult and follow up: Positive troponin, admitted with altered mental status,complaints of shortness of breath one flight of stairs,history of emphysema, ex-smoker, Denies shortness of breath now, denies chest pain, comfortable Objective - Vital Signs/Intake and Output Vital Signs (last 24 hours): Temp Pulse Resp BP Pulse Ox 97.3 F L 71 20 107/61 96 06/11/17 05:50 06/11/17 05:50 06/11/17 05:50 06/11/17 05:50 06/11/17 05:50 Intake and Output: 06/11/17 06/11/17 06:59 18:59 Intake Total 750 Balance 750 - Medications Medications: Current Medications Albuterol/Ipratropium (Duoneb 3 Mg/0.5 Mg (3 Ml) Ud) 3 ml IH [id number] [facility] Last Admin: 06/11/17 07:27 Dose: 3 ml Aspirin (Ecotrin) 81 mg PO DAILY BARBARA Enoxaparin Sodium (Lovenox) 60 mg SC Q12 BARBARA PRN Reason: Protocol Last Admin: 06/11/17 00:30 Dose: 60 mg Sodium Chloride (Sodium Chloride 0.9%) 1,000 mls @ 100 mls/hr IV .Q10H [facility] Last Admin: 06/11/17 02:25 Dose: Not Given Doxycycline Hyclate 100 mg/ (Sodium Chloride) 100 mls @ 100 mls/hr IVPB Q12 [facility] PRN Reason: Protocol Last Admin: 06/11/17 01:51 Dose: 100 mls/hr Meropenem (Merrem Iv 1 Gm Premix) 50 mls @ 100 mls/hr IVPB Q8 BARBARA PRN Reason: Protocol Stop: 06/19/17 22:01 Last Admin: 06/11/17 05:13 Dose: 100 mls/hr Vancomycin HCl (Vancomycin 1gm) 1 gm in 250 mls @ 167 mls/hr IVPB Q12H BARBARA PRN Reason: Protocol Stop: 06/19/17 21:16 Last Admin: 06/11/17 00:30 Dose: 167 mls/hr Metoprolol Tartrate (Lopressor) 25 mg PO BID [facility] Last Admin: 06/10/17 21:06 Dose: 25 mg - Labs Labs: 06/11/17 07:41 06/11/17 06:00 - Constitutional Appears: No Acute Distress - Head Exam Head Exam: NORMAL INSPECTION - Eye Exam Eye Exam: Normal appearance Pupil Exam: NORMAL ACCOMODATION - ENT Exam ENT Exam: Mucous Membranes Dry - Respiratory Exam Respiratory Exam: Decreased Breath Sounds, Clear to Ausculation Bilateral, NORMAL BREATHING PATTERN - Cardiovascular Exam Cardiovascular Exam: REGULAR RHYTHM - GI/Abdominal Exam GI & Abdominal Exam: Soft, Normal Bowel Sounds - Extremities Exam Additional comments: clubbing and mild cyanosis - Neurological Exam Neurological Exam: Alert, Awake, Oriented x3 - Psychiatric Exam Psychiatric exam: Normal Affect, Normal Mood - Skin Skin Exam: Dry, Intact, Warm Assessment and Plan - Assessment and Plan (Free Text) Assessment: A 77 year old with history of emphysema,ex smoker came in to the Er due to altered mental status and elevated troponin with fever- Temp 102.4. Troponin could be secondary to supply ischemia versus coronary artery disease. CT of the head negative for bleeding. Plan: Continue ASA 81 mg OD, Lopressor 25 mg BID,Lovenox 60 mg q [address] of head negative for bleeding continue lovenox For echo- follow up result Vital signs stable, BP controlled Will follow up
[2017-06-11 08:25] LABS: LDL CHOLESTEROL 57 mg/dL (0-129)
--- NOTE | 2017-06-11 17:05 | CARD ---
APPROVED REPORT EXAM: Two-dimensional and M-mode echocardiogram with Doppler and color Doppler. INDICATION Dyspnea R/O UT 2D DIMENSIONS Left Atrium (2D)3.4 (1.6-4.0cm)IVSd1.0 (0.7-1.1cm) LVDd3.8 (3.9-5.9cm)PWd1.1 (0.7-1.1cm) LVDs2.7 (2.5-4.0cm)FS (%) 29.6 % LVEF (%)57.5 (>50%) M-Mode DIMENSIONS Aortic Root3.00 (2.2-3.7cm)Aortic Cusp Exc.1.60 (1.5-2.0cm) Aortic Valve AoV Peak Obtqrjpb614.0cm/Jose Peak GR.8mmHg Mitral Valve MV E Iwehijim35.1cm/sMV A Chwpmbuo638.0cm/sE/A ratio0.9 TDI Lateral E' Peak V12.60cm/sMedial E' Peak V8.87cm/sE/Lateral E'7.8 E/Medial E'11.1 Pulmonary Valve PV Peak Tgisdcdw63.8cm/sPV Peak Grad.2mmHg Tricuspid Valve TR Peak Zawdchby956wk/sRAP [id number] Peak Gr.26mmHg [id number] LEFT VENTRICLE The left ventricle is normal size. There is normal left ventricular wall thickness. The left ventricular function is normal.EF-55% There is mild hypokinesis in the apical anterior wall. Transmitral Doppler flow pattern is Grade III-reversible restrictive diastolic dysfunction. No left ventricle thrombus noted on this study. There is no ventricular septal defect visualized. There is no left ventricular aneurysm. There is no mass noted in the left ventricle. RIGHT VENTRICLE The right ventricle is normal size. There is normal right ventricular wall thickness. The right ventricular systolic function is normal. ATRIA The left atrium size is normal. The right atrium size is normal. The interatrial septum is intact with no evidence for an atrial septal defect. AORTIC VALVE The aortic valve is thickened but opens well. There is trace aortic regurgitation. There is no aortic valvular stenosis. There is no aortic valvular vegetation. MITRAL VALVE The mitral valve is thickened but opens well. Mitral regurgitation is trace. There is no mitral valve stenosis. There is no evidence of mitral valve prolapse. TRICUSPID VALVE The tricuspid valve leaflets are thickened , but open well. There is mild tricuspid regurgitation.RVSP-36 mmof hg. There is no tricuspid valve stenosis. There is no tricuspid valve prolapse or vegetation. PULMONIC VALVE The pulmonary valve is normal in structure. There is trace pulmonic valvular regurgitation. There is no pulmonic valvular stenosis. GREAT VESSELS The aortic root is normal in size. The ascending aorta is normal in size. The pulmonary artery is normal. The IVC is normal in size and collapses >50% with inspiration. PERICARDIAL EFFUSION There is no pleural effusion. There is no pericardial effusion. <Conclusion> Normal chamber SIze. EF-55% There is mild hypokinesis in the apical anterior wall. Mitral regurgitation is trace. There is trace aortic regurgitation. There is mild tricuspid regurgitation.RVSP-36 mmof hg. The IVC is normal in size and collapses >50% with inspiration. There is no pericardial effusion. No Vegetation or thrombus noted.
[2017-06-11 18:36] LABS: TROPONIN I 0.09 ng/mL
[2017-06-11 18:46] LABS: CK-MB 3.6 ng/mL (0.0-3.6)
--- NOTE | 2017-06-11 18:53 | US ---
PROCEDURE: Bilateral carotid artery duplex ultrasound HISTORY: Carotid stenosis CVA PHYSICIAN(S): Hema Garza MD. TECHNIQUE: Duplex sonography and color-flow Doppler were used to evaluate the carotid bifurcations and limited segments of the vertebral arteries bilaterally. FINDINGS: There is extensive heterogeneous irregular echogenic plaque noted at the carotid bifurcations bilaterally. There is a high resistance waveform noted throughout the right common and internal carotid artery. This could represent a distal obstruction. The peak systolic velocity in the proximal right internal carotid artery is 104 cm/second. However the origin of the right ICA is obscured by shadowing plaque. There is antegrade flow in the right vertebral artery. The peak systolic velocity in the proximal left internal carotid artery is 97 cm/sec. This corresponds to a 20 to 39% proximal left ICA stenosis. Normal systolic velocities are noted in the proximal left external carotid artery. There is antegrade flow in the large left vertebral artery. IMPRESSION: 1. High resistance waveform throughout the right common and internal carotid artery. Could represent a distal obstruction. 2. 20-39 percent proximal right ICA stenosis 3. Antegrade flow in both vertebral arteries.
--- NOTE | 2017-06-11 19:00 | CP.PCM.CON ---
History of Present Illness - History of Present Illness History of Present Illness: 77 year old female with PMH of HTN, COPD, anxiety disorder was brought in to [facility] because the patient was noted by family members to have lightheadedness and felt weak. She was also complaining of some shortness of breath and cough for the past 2-3 days and in the ED she was noted to have fever. She denies abdominal pain, no diarrhea, no nausea or vomiting, no sore throat. Currently the patient is feeling better. She was recently seen in the ED for similar symptoms, except for the fever. Infectious Diseases consult is requested to further evaluate and manage. Review of Systems - Review of Systems All systems: reviewed and no additional remarkable complaints except (as per HPI ) Past Patient History - Infectious Disease Hx of Infectious Diseases: None - Tetanus Immunizations Tetanus Immunization: Unknown - Past Social History Smoking Status: Never Smoked - CARDIAC Hx Cardiac Disorders: Yes Hx Hypertension: Yes - PULMONARY Hx Respiratory Disorders: Yes Hx Asthma: Yes Hx Chronic Obstructive Pulmonary Disease (COPD): Yes Hx Emphysema: Yes - HEENT Hx HEENT Problems: Yes (eyeglasses) Hx Glaucoma: Yes - MUSCULOSKELETAL/RHEUMATOLOGICAL Hx Musculoskeletal Disorders: Yes Hx Arthritis: Yes Hx Falls: No - GASTROINTESTINAL Hx Gastrointestinal Disorders: Yes Hx Colitis: Yes Other/Comment: dx with colitis around 5 yrs ago/has flare ups from time to time - PSYCHIATRIC Hx Psychophysiologic Disorder: Yes Hx Anxiety: Yes - SURGICAL HISTORY Hx Tonsillectomy: Yes - ANESTHESIA Hx Anesthesia: Yes Hx Anesthesia Reactions: No Hx Malignant Hyperthermia: No Meds Allergies/Adverse Reactions: Allergies Allergy/AdvReac Type Severity Reaction Status Date / Time FISH Allergy Severe SWELLING Verified 07/02/16 18:12 sulfur dioxide Allergy ANAPHYLAXIS Verified 07/02/16 18:13 - Medications Medications: Current Medications Albuterol/Ipratropium (Duoneb 3 Mg/0.5 Mg (3 Ml) Ud) 3 ml IH [id number] [facility] Last Admin: 06/11/17 07:27 Dose: 3 ml Aspirin (Ecotrin) 81 mg PO DAILY [facility] Last Admin: 06/11/17 09:50 Dose: 81 mg Enoxaparin Sodium (Lovenox) 60 mg SC Q12 [facility] PRN Reason: Protocol Last Admin: 06/11/17 09:50 Dose: 60 mg Sodium Chloride (Sodium Chloride 0.9%) 1,000 mls @ 100 mls/hr IV .Q10H [facility] Last Admin: 06/11/17 02:25 Dose: Not Given Doxycycline Hyclate 100 mg/ (Sodium Chloride) 100 mls @ 100 mls/hr IVPB Q12 [facility] PRN Reason: Protocol Last Admin: 06/11/17 01:51 Dose: 100 mls/hr Meropenem (Merrem Iv 1 Gm Premix) 50 mls @ 100 mls/hr IVPB Q8 [facility] PRN Reason: Protocol Stop: 06/19/17 22:01 Last Admin: 06/11/17 05:13 Dose: 100 mls/hr Vancomycin HCl (Vancomycin 1gm) 1 gm in 250 mls @ 167 mls/hr IVPB Q12H [facility] PRN Reason: Protocol Stop: 06/19/17 21:16 Last Admin: 06/11/17 09:49 Dose: 167 mls/hr Metoprolol Tartrate (Lopressor) 25 mg PO BID [facility] Last Admin: 06/11/17 09:50 Dose: 25 mg Physical Exam - Constitutional Appears: Non-toxic, Chronically Ill - Head Exam Head Exam: NORMAL INSPECTION - ENT Exam ENT Exam: Mucous Membranes Moist - Neck Exam Neck exam: Negative for: Lymphadenopathy, Meningismus - Respiratory Exam Respiratory Exam: Decreased Breath Sounds - Cardiovascular Exam Cardiovascular Exam: +S1, +S2 - GI/Abdominal Exam GI & Abdominal Exam: Soft. absent: Tenderness Results - Vital Signs Recent Vital Signs: Last Vital Signs Temp 97.3 F L 06/11/17 05:50 Pulse 82 06/11/17 09:50 Resp 20 06/11/17 05:50 BP 130/54 L 06/11/17 09:50 Pulse Ox 96 06/11/17 05:50 - Labs Result Diagrams: 06/11/17 07:41 06/11/17 06:00 Labs: Laboratory Results - last 24 hr 06/11/17 06/11/17 06/11/17 06:00 06:00 07:41 WBC 4.9 D RBC 4.33 Hgb 12.6 Hct 37.7 MCV 87.1 MCH 29.1 MCHC 33.4 RDW 13.5 Plt Count 102 L MPV 9.7 Gran % 80.6 H Lymph % (Auto) 4.7 L Gem % (Auto) 5.1 Eos % (Auto) 9.2 H Baso % (Auto) 0.4 Gran # 3.93 Lymph # (Auto) 0.2 L Gem # (Auto) 0.3 Eos # (Auto) 0.5 Baso # (Auto) 0.02 Sodium 132 Potassium 3.5 L Chloride 101 Carbon Dioxide 23 Anion Gap 12 BUN 19 Creatinine 0.6 L Est GFR ( Amer) > 60 Est GFR (Non-Af Amer) > 60 Random Glucose 90 Calcium 8.2 L Phosphorus 2.9 Magnesium 2.0 Total Bilirubin 0.3 AST 83 H D ALT 121 H Alkaline Phosphatase 93 Total Protein 5.2 L Albumin 2.6 L Globulin 2.6 Albumin/Globulin Ratio 1.0 L Triglycerides 126 Cholesterol 137 LDL Cholesterol Direct 57 HDL Cholesterol 36 TSH 3rd Generation 2.37 Assessment & Plan - Assessment and Plan (Free Text) Plan: Assessment Systemic inflammatory response syndrome, R/O systemic viral illness, R/O Influenza, R/O COPD exacerbation with acute bronchitis HTN COPD anxiety disorder Plan Started patient on Vancomycin, Merrem and Doxycycline pending blood, sputum cx, urine cx; reviewed CXR which shows peribronchial thickening, suggestive of bronchitis; PCT is elevated also started on Tamiflu, even though rapid flu test is negative will monitor clinically and trend fever curve
--- NOTE | 2017-06-11 19:00 | CON ---
DATE: CHIEF COMPLAINT: Altered mental status. HISTORY OF PRESENT ILLNESS: This is a 77-year-old woman with history of anxiety, history of hypertension, COPD, asthma, and emphysema, who was brought in by family member for change in mental status, though currently she is answering questions appropriately, but goes intermittently certainly off tangential according to the daughter. Had fever and found to have some bandemia and elevated troponin and was placed on therapeutic Lovenox for a possible active coronary artery disease. Patient has some abdominal pain and has been having some occasional diarrhea, found to have hyponatremia with a sodium level of 129 and elevated BUN and low creatinine and with procalcitonin level of 5.34 indicating some form of sepsis with some bandemia. ID is on board. CAT scan of the head showed no acute intracranial abnormalities. She is on aspirin 81 mg. There is no focal weakness or no pronator drifts seen on examination; therefore, we will hold off for an MRI of the brain. She is on therapeutic Lovenox. She is following commands appropriately. PAST MEDICAL HISTORY: COPD, hypertension, emphysema, quit smoking 25 years ago. SOCIAL HISTORY: No illicit drug abuse, smoking, or EtOH abuse at this time. FAMILY HISTORY: Noncontributory. MEDICATIONS: Reviewed via nurse reconciliation sheet. ALLERGIES: SHE HAS ALLERGY TO SULFA DRUGS. REVIEW OF SYSTEMS: Fourteen-point review of systems as per HPI. PHYSICAL EXAMINATION: GENERAL: Patient is seen up on the bed, in no acute distress. VITAL SIGNS: Temperature of 98, pulse rate 72, blood pressure 116/56, respiratory rate of 20, oxygen saturation 96% via room air. HEENT: Head is atraumatic, normocephalic. PERRLA. Extraocular muscles are intact. NECK: Supple. No JVD. No adenopathy noted. LUNGS: Clear to auscultation. No adventitious sounds. HEART: S1 and S2. Normal rate and rhythm. No murmurs, rub, or gallops. ABDOMEN: Soft, nontender, nondistended. Bowel sounds are present. EXTREMITIES: No clubbing. No cyanosis. Peripheral pulses 2+ felt bilaterally. NEUROLOGIC: Patient is alert and oriented to time, person, place, month, and year. Recall after 5 minutes is 0/3. Poor attention span. Slow thought process. Cranial nerves II through XII are intact. Speech is fluent without any errors. Motor exam: Slight increased tone throughout. Moves all extremities equally. No pronator drift seen. Sensory exam: Light touch, pinprick, proprioception, vibration is intact. DTRs are 2+ throughout and 1 at the ankles. Coordination: [id number] intact. No evidence of any dysmetria. Gait is deferred for now. LABORATORY DATA: Sodium 132, potassium 3.5, chloride 101, carbon dioxide 23, BUN of 19, creatinine 0.69, glucose 90, A1c is 5.9. Elevated AST and elevated procalcitonin level. ASSESSMENT AND PLAN: 1. This is a 77-year-old woman with history of hypertension, emphysema, chronic obstructive pulmonary disease, ex-smoker, came in with altered mental status, elevated fever of 102.4 with some bandemia of 14, elevated troponin likely secondary to underlying coronary artery disease versus ischemia, was called for altered mental status. Altered mental status could be secondary to toxic metabolic encephalopathy causing also mild delirium. Patient was hyponatremic and elevated procalcitonin level. At this time, we recommended CAT scan of the abdomen to rule out any localized infection. CAT scan of the head was negative. 2. Continue with therapeutic Lovenox for coronary artery disease and recommended aspirin 81 and Lipitor 40 for stroke prevention. 3. Monitor electrolytes and correct accordingly. 4. We will hold off for an MRI unless there is any acute focal weakness on the extremities currently. Her neurologic exam is currently nonfocal. At this time, continue current present medical management, PT/OT assessment, and followup with Cardiology and in ID recommendations. Thank you for this consult. Garcia Looney MD
[2017-06-12] MEDS: Sodium Chloride 0.9% 1,000 ML IV SCH ×3 (01:07→22:18)
[2017-06-12] MEDS: Albuterol-Ipratrop 3 mg / 0.5 (3 ml) UD IH SCH ×4 (02:10→19:23)
[2017-06-12] MEDS: Meropenem IV 1 gm in NS 50 ML IVPB SCH ×3 (05:22→22:17)
--- NOTE | 2017-06-12 08:11 | CP.PCM.PN ---
Subjective - Date & Time of Evaluation Date of Evaluation: 06/12/17 Time of Evaluation: 07:30 - Subjective Subjective: Seen and examined by me and Dr. Samano reason for consultation and follow up: Positive troponin, admitted with altered mental status,complaints of shortness of breath one flight of stairs,history of emphysema, ex-smoker Denies chest pain and shortness of breath, out of bed to commode Objective - Vital Signs/Intake and Output Vital Signs (last 24 hours): Temp Pulse Resp BP Pulse Ox 98 F 80 20 136/55 L 93 L 06/12/17 06:00 06/12/17 06:00 06/12/17 06:00 06/12/17 06:00 06/12/17 06:00 Intake and Output: 06/12/17 06/12/17 06:59 18:59 Intake Total 2100 Output Total 1000 Balance 1100 - Medications Medications: Current Medications Albuterol/Ipratropium (Duoneb 3 Mg/0.5 Mg (3 Ml) Ud) 3 ml IH [id number] [facility] Last Admin: 06/12/17 07:46 Dose: 3 ml Aspirin (Ecotrin) 81 mg PO DAILY [facility] Last Admin: 06/11/17 09:50 Dose: 81 mg Enoxaparin Sodium (Lovenox) 60 mg SC Q12 [facility] PRN Reason: Protocol Last Admin: 06/11/17 21:20 Dose: 60 mg Sodium Chloride (Sodium Chloride 0.9%) 1,000 mls @ 100 mls/hr IV .Q10H [facility] Last Admin: 06/12/17 01:07 Dose: 100 mls/hr Doxycycline Hyclate 100 mg/ (Sodium Chloride) 100 mls @ 100 mls/hr IVPB Q12 [facility] PRN Reason: Protocol Last Admin: 06/11/17 22:28 Dose: 100 mls/hr Meropenem (Merrem Iv 1 Gm Premix) 50 mls @ 100 mls/hr IVPB Q8 [facility] PRN Reason: Protocol Stop: 06/19/17 22:01 Last Admin: 06/12/17 05:22 Dose: 100 mls/hr Vancomycin HCl (Vancomycin 1gm) 1 gm in 250 mls @ 167 mls/hr IVPB Q12H [facility] PRN Reason: Protocol Stop: 06/19/17 21:16 Last Admin: 06/11/17 21:29 Dose: 167 mls/hr Metoprolol Tartrate (Lopressor) 25 mg PO BID [facility] Last Admin: 06/11/17 17:43 Dose: 25 mg Oseltamivir Phosphate (Tamiflu Cap) 75 mg PO BID [facility] PRN Reason: Protocol Stop: 06/16/17 11:03 Last Admin: 06/11/17 17:43 Dose: Not Given - Labs Labs: 06/11/17 07:41 06/11/17 06:00 - Constitutional Appears: Well, No Acute Distress - Head Exam Head Exam: NORMAL INSPECTION - ENT Exam ENT Exam: Normal Exam - Respiratory Exam Respiratory Exam: Decreased Breath Sounds, Clear to Ausculation Bilateral, NORMAL BREATHING PATTERN - Cardiovascular Exam Cardiovascular Exam: REGULAR RHYTHM, +S1, +S2 - GI/Abdominal Exam GI & Abdominal Exam: Normal Bowel Sounds - Extremities Exam Extremities Exam: Full ROM Additional comments: weak - Neurological Exam Neurological Exam: Alert, Awake, Oriented x3 - Psychiatric Exam Psychiatric exam: Normal Affect, Normal Mood - Skin Skin Exam: Dry, Intact, Normal Color, Warm Assessment and Plan - Assessment and Plan (Free Text) Assessment: Impression:Positive troponin, admitted with altered mental status,complaints of shortness of breath one flight of stairs,history of emphysema, ex-smoker Echocardiogram showed normal EF-55% Milf hypokinesis in the apical anterior wall Breathing and feeling better than yesterday. Plan: Stable vital signs and blood pressure Continue Aspirin, Metoprolol and Lovenox Activity OOB to commode as tolerated Continue current care K+ 3.5 ordered Potassium 40 meq (Kdur) x 1 dose Repeat potassium level in am Will follow
[2017-06-12] MEDS ORDERED: Potassium Chloride 20 mEq ER Tab PO STA (08:32)
[2017-06-12] MEDS: Enoxaparin 60 mg Syringe SC SCH ×2 (09:16→22:16)
[2017-06-12] MEDS: Vancomycin 1gm in NS 250ml 1 GM/250 ML BAG IVPB SCH (09:27)
--- NOTE | 2017-06-12 14:58 | CON ---
DATE: 06/12/2017 CHIEF COMPLAINT: Followup for altered mental status. HISTORY OF PRESENT ILLNESS: The patient is seen at the edge of bed, in no acute distress, doing well, no acute events overnight. She had a carotid Doppler apparently done, which showed high resistance waveform in the right common and internal carotid artery, which could represent a distal obstruction though it is obscured by a shadow plaque ICA stenosis and vertebral arteries. Patient will go for an MRI of the brain and MRA of the neck today. No focal weakness of extremities. PAST MEDICAL HISTORY: COPD, hypertension, emphysema, quit smoking 25 years ago. FAMILY HISTORY: Noncontributory. MEDICATIONS: Reviewed by nurse reconciliation sheet. ALLERGIES: SULFA DRUGS. REVIEW OF SYSTEMS: A 14-point review of systems negative except as per the HPI. LABORATORY DATA: Today: Potassium is 2.9, which is low. PHYSICAL EXAMINATION: VITAL SIGNS: Temperature 90, pulse of 87, blood pressure 143/60, respirations 20, oxygen saturation by room air. GENERAL: Patient is sitting up at the edge of the bed, in no acute distress. HEENT: Head is atraumatic and normocephalic. PERRLA. Extraocular muscles intact. NECK: Supple. No JVD. No adenopathy noted. LUNGS: Clear to auscultation. No adventitious sounds. HEART: S1, S2, normal rate and rhythm. No murmurs, rubs or gallops. ABDOMEN: Soft, nontender, nondistended. Bowel sounds present. EXTREMITIES: No clubbing, no cyanosis. Peripheral pulses are 2+ felt bilaterally. NEUROLOGIC: Patient is alert, oriented to person, place, month and year. Speech is fluent without any errors. Recall after 5 minutes is 0/3. Poor attention span. Slow thought process. Cranial nerves II to XII intact. Motor: Slight increased tone throughout. Moves all extremities equally. No pronator drift seen. Sensory: Light touch, pinprick, proprioception and vibration intact. DTRs are 2+ throughout and 1 at the ankles. Coordination: [id number] intact. No dysmetria noted. Gait is deferred now. ASSESSMENT AND PLAN: This is a 77-year-old woman with past medical history of hypertension, emphysema, chronic obstructive pulmonary disease, ex-smoker, came in with altered mental status, found to have elevated fever of 102.4 with bandemia 14, elevated troponin secondary to underlying possible coronary artery disease/ischemia. I was called for altered mental status, could be likely secondary to toxic metabolic encephalopathy and with some mild intermittent delirium. Patient was initially hyponatremic with elevated procalcitonin and hypokalemic today. Her carotid Doppler showed some possible distal obstruction in the right common and internal carotid arteries, but could represent distal obstruction, but otherwise, there is possible internal carotid artery stenosis. No acute events overnight. RECOMMENDATIONS: At this time, recommend: 1. MRI of the brain and MRA of the neck to evaluate for any acute abnormalities. 2. Continue therapy with Lovenox and aspirin and Lipitor for stroke prevention. 3. Monitor electrolytes and correct accordingly. Continue with PT/OT assessment and Cardiology followup. Thank you for this consult. Garcia Looney MD
--- NOTE | 2017-06-12 20:41 | PN ---
DATE: SUBJECTIVE: The patient is seen in bed, in no acute distress, was seen earlier this morning in room 371, bed 1. She feels better, she states. PHYSICAL EXAMINATION VITAL SIGNS: On exam, temperature is 98, blood pressure is 130/50, respiratory rate of 20. HEENT: Unremarkable. NECK: Supple. LUNGS: Have decreased breath sounds. HEART: Normal S1 and S2. ABDOMEN: Soft. LABORATORY DATA: Reveals a white count of 4.9, hemoglobin of 12, platelets of 102. Chemistries reveals the patient's BUN of 19, creatinine of 0.6. Serology is noted. Microbiology reveals the blood cultures are negative. ASSESSMENT AND PLAN: A 77-year-old female, seen earlier today in 371, bed 1, with systemic inflammatory response syndrome and the patient with chronic obstructive lung disease and acute bronchitis, hypertension, anxiety, on vancomycin, meropenem, doxycycline and Tamiflu, and with negative blood cultures, negative influenza, elevated procalcitonin. No consolidation on the chest x-ray. We will discontinue the vancomycin and change the doxycycline to p.o. and follow with you. Overall, the patient has improved. We will follow closely with you. Check on the final culture results . Fortunato Aaron MD
--- NOTE | 2017-06-12 23:04 | PN ---
DATE: 06/12/2017 SUBJECTIVE: She was admitted with fever, COPD exacerbation, and bandemia. She also has lightheadedness and dizziness. Evaluated by Cardiology, possible carotid artery stenosis. She is being followed by ID, currently on IV antibiotics. No fever overnight. No nausea. No vomiting. No chest pain. PAST MEDICAL HISTORY: COPD, hypertension. ALLERGIES: TO FISH. FAMILY HISTORY: Noncontributory. PERSONAL HISTORY: Nonsmoker, former smoker. No history of alcohol abuse. MEDICATIONS: At home, Norvasc 10 mg daily, Micardis, hydralazine 100 mg daily. PAST SURGICAL HISTORY: None. REVIEW OF SYSTEMS: As per HPI. Rest of the 12-point review of systems reviewed and negative. PHYSICAL EXAMINATION: GENERAL: Comfortable in bed, in no acute distress. VITAL SIGNS: Afebrile. Temperature on admission was 102, respiratory rate 18 per minute, blood pressure 110/70. LUNGS: Clear air entry. No rhonchi. No crepitations. CARDIOVASCULAR: S1 and S2 normal. No murmur. No gallop. ABDOMEN: Soft, nontender. No hepatosplenomegaly. EXTREMITIES: No edema. LABORATORY DATA: White count 4.9, hemoglobin 12.6, hematocrit 37.9, platelets 102, bands 14% on admission, today none. Potassium 2.9. LDH 640. CAT scan of abdomen and pelvis, no acute changes. ASSESSMENT: 1. Bandemia. 2. Syncope. 3. Fever. PLAN: Bandemia, resolved. Currently on IV antibiotic doxycycline, meropenem. ID is following. Also on Tamiflu. Dr. Aaron's note reviewed. consultation by Dr. Looney requested for dizziness and syncope, possible carotid artery stenosis. MRI of the head and MRA of neck ordered by Neurology. Blood count improved. We will continue IV fluids at 100 mL an hour. Continue bronchodilator, aspirin 81 mg daily. Labs ordered for the morning, CBC, BMP. She also had hypokalemia, 40 mEq of potassium ordered. Desiree Coy MD [facility]
[2017-06-13] MEDS: Albuterol-Ipratrop 3 mg / 0.5 (3 ml) UD IH SCH ×4 (01:13→19:00)
[2017-06-13] MEDS: Sodium Chloride 0.9% 1,000 ML IV SCH ×2 (03:00→21:48)
[2017-06-13] MEDS: Meropenem IV 1 gm in NS 50 ML IVPB SCH ×3 (05:43→21:46)
[2017-06-13 06:55] LABS: BLOOD UREA NITROGEN 5 mg/dL (7-21); CALCIUM 8.8 mg/dL (8.4-10.5); GFR AFRICAN-AMERICAN > 60; GFR NON-AFRICAN AMERICAN > 60
[2017-06-13] MEDS ORDERED: Iodixanol 320 mg/ml 150 ml Bottle IV ONE (08:11)
[2017-06-13] MEDS ORDERED: Potassium Chloride 20 mEq ER Tab PO ONE (09:46)
--- NOTE | 2017-06-13 09:54 | CP.PCM.PN ---
Subjective - Date & Time of Evaluation Date of Evaluation: 06/13/17 Time of Evaluation: 08:45 - Subjective Subjective: Seen and examined by me and Dr. Samano Reason for consultation and follow up: Positive troponin, admitted with altered mental status,complaints of shortness of breath one flight of stairs,history of emphysema, ex-smoker Feeling better,denies chest pain and shortness of breath, lying in bed with nebulizer treatment Objective - Vital Signs/Intake and Output Vital Signs (last 24 hours): Temp Pulse Resp BP Pulse Ox 98.1 F 79 21 165/89 H 96 06/13/17 06:00 06/13/17 06:00 06/13/17 06:00 06/13/17 06:00 06/13/17 06:00 Intake and Output: 06/13/17 06/13/17 06:59 18:59 Intake Total Balance - Medications Medications: Current Medications Albuterol/Ipratropium (Duoneb 3 Mg/0.5 Mg (3 Ml) Ud) 3 ml IH [id number] [facility] Last Admin: 06/13/17 07:31 Dose: 3 ml Aspirin (Ecotrin) 81 mg PO DAILY [facility] Last Admin: 06/12/17 09:16 Dose: 81 mg Doxycycline Hyclate (Doryx) 100 mg PO Q12 [facility] PRN Reason: Protocol Stop: 06/20/17 22:01 Last Admin: 06/12/17 22:16 Dose: 100 mg Enoxaparin Sodium (Lovenox) 60 mg SC Q12 [facility] PRN Reason: Protocol Last Admin: 06/12/17 22:16 Dose: 60 mg Sodium Chloride (Sodium Chloride 0.9%) 1,000 mls @ 100 mls/hr IV .Q10H [facility] Last Admin: 06/13/17 03:00 Dose: Not Given Meropenem (Merrem Iv 1 Gm Premix) 50 mls @ 100 mls/hr IVPB Q8 [facility] PRN Reason: Protocol Stop: 06/19/17 22:01 Last Admin: 06/13/17 05:43 Dose: 100 mls/hr Metoprolol Tartrate (Lopressor) 25 mg PO BID [facility] Last Admin: 06/12/17 18:26 Dose: 25 mg Oseltamivir Phosphate (Tamiflu Cap) 75 mg PO BID [facility] PRN Reason: Protocol Stop: 06/16/17 11:03 Last Admin: 06/12/17 18:26 Dose: 75 mg Potassium Chloride (K-Dur 20 Meq Er Tab) 20 meq PO ONCE ONE Stop: 06/13/17 09:47 - Labs Labs: 06/11/17 07:41 06/13/17 05:00 - Constitutional Appears: No Acute Distress - Eye Exam Eye Exam: Normal appearance Pupil Exam: NORMAL ACCOMODATION - ENT Exam ENT Exam: Mucous Membranes Moist, Normal Exam - Neck Exam Neck Exam: Normal Inspection - Respiratory Exam Respiratory Exam: Decreased Breath Sounds, Clear to Ausculation Bilateral, NORMAL BREATHING PATTERN - Cardiovascular Exam Cardiovascular Exam: REGULAR RHYTHM, +S1, +S2 - GI/Abdominal Exam GI & Abdominal Exam: Soft, Normal Bowel Sounds - Extremities Exam Extremities Exam: Full ROM, Normal Capillary Refill Additional comments: Weak lower extremities but out of bed with assistance - Back Exam Back Exam: NORMAL INSPECTION - Psychiatric Exam Psychiatric exam: Normal Affect, Normal Mood - Skin Skin Exam: Dry, Intact, Normal Color, Warm Assessment and Plan - Assessment and Plan (Free Text) Assessment: Impression: Positive troponin, admitted with altered mental status,complaints of shortness of breath one flight of stairs,history of emphysema, ex-smoker Plan: Elevated blood pressure, will increase Lopressor to 50 mg BID Continue ASA 81 mg OD Feeling better today Potassium level today 3.4, ordered replacement and repeat level tomorrow Stable Will follow up Treatment and plan reviewed with Dr. Samano
--- NOTE | 2017-06-13 10:03 | CT ---
PROCEDURE: CT HEAD WITHOUT CONTRAST. HISTORY: Abnormal carotid us/ams COMPARISON: 07/11/2017. TECHNIQUE: Axial computed tomography images were obtained through the head/brain without intravenous contrast. Radiation dose: Total exam DLP = 910.71 mGy-cm. This CT exam was performed using one or more of the following dose reduction techniques: Automated exposure control, adjustment of the mA and/or kV according to patient size, and/or use of iterative reconstruction technique. FINDINGS: HEMORRHAGE: No intracranial hemorrhage. BRAIN: No mass effect or edema. Cortical atrophy, periventricular small vessel disease. VENTRICLES: Unremarkable. No hydrocephalus. CALVARIUM: Unremarkable. PARANASAL SINUSES: Unremarkable as visualized. No significant inflammatory changes. MASTOID AIR CELLS: Unremarkable as visualized. No inflammatory changes. OTHER FINDINGS: None. IMPRESSION: No acute intracranial abnormalities. No significant findings to account for the clinical presentation. No significant interval change compared to the prior examination(s).
[2017-06-13] MEDS: Enoxaparin 60 mg Syringe SC SCH ×2 (11:18→21:46)
--- NOTE | 2017-06-13 15:48 | CT ---
PROCEDURE: CT Chest without contrast HISTORY: r/o infilt COMPARISON: 06/10/2017 single-view chest TECHNIQUE: Contiguous axial images were obtained through the chest without intravenous contrast enhancement. Sagittal and coronal reconstructions were performed. Radiation dose (DLP): 538.94 mGy-cm. This CT exam was performed using one or more of the following dose reduction techniques: Automated exposure control, adjustment of the mA and/or kV according to patient size, and/or use of iterative reconstruction technique. FINDINGS: LUNGS: New bibasilar infiltrates associate with small right and left pleural effusions Subsegmental lingular atelectasis/infiltrate. Underlying hyperinflation, manifestations of COPD with parabronchial thickening/bronchitis without evidence of mucous plugging. MEDIASTINUM: Unremarkable thoracic aorta. No aneurysm. Normal sized heart. Main pulmonary artery unremarkable. No vascular congestion. No lymphadenopathy. PLEURA: Pleural effusion/compressive atelectasis BONES: No fracture. No destructive lesion. UPPER ABDOMEN: Grossly unremarkable. OTHER FINDINGS: None. IMPRESSION: 1. New bilateral pleural effusions, small. 2. New dependent atelectatic changes. 3. Small lingular infiltrate. 4. Underlying hyperinflation/manifestations of COPD/bronchitis.
--- NOTE | 2017-06-13 19:21 | PN ---
DATE: SUBJECTIVE: Patient is in bed, in no acute distress, was seen early this morning. PHYSICAL EXAMINATION: VITAL SIGNS: Temperature is 97, blood pressure is 180/80, respiratory rate of 20. HEENT: Unremarkable. NECK: Supple. LUNGS: Have decreased breath sounds. HEART: Normal S1, S2. ABDOMEN: Soft, nontender. LABORATORY EXAMINATION: Reveals a white count of 4.9, although the patient had 14% bandemia and the urine BUN is 5, creatinine of 0.4 and procalcitonin is 5.34 and serology is negative and microbiology reveals the blood cultures are negative. The patient had a CT scan of the head, no acute intracranial abnormalities. ASSESSMENT AND PLAN: A 77-year-old, who is seen earlier this morning with systemic inflammatory response syndrome and chronic obstructive lung disease, acute bronchitis, hypertension, anxiety, and currently on meropenem and p.o. doxycycline and p.o. Tamiflu with negative blood cultures and negative chest x-ray. We will order a repeat procalcitonin and a CAT scan of the chest and today is day #4 of meropenem and doxycycline and day #3 of Tamiflu. We will make further recommendations upon availability of initial results. The initial procalcitonin was elevated at 5.34. Fortunato Aaron MD
--- NOTE | 2017-06-13 23:25 | CP.PCM.PN ---
Subjective - Date & Time of Evaluation Date of Evaluation: 06/13/17 Time of Evaluation: 10:00 - Subjective Subjective: DATE: 06/13/2017 SUBJECTIVE: She was admitted with fever, COPD exacerbation, and bandemia. She also has lightheadedness and dizziness. Evaluated by Cardiology, possible carotid artery stenosis. She is being followed by ID, currently on IV antibiotics. No fever overnight. No nausea. No vomiting. No chest pain. CT chest showed mild bilateral pleural effusion. CT head unremarkable. PAST MEDICAL HISTORY: COPD, hypertension. ALLERGIES: TO FISH. FAMILY HISTORY: Noncontributory. PERSONAL HISTORY: Nonsmoker, former smoker. No history of alcohol abuse. MEDICATIONS: At home, Norvasc 10 mg daily, Micardis, hydralazine 100 mg daily. PAST SURGICAL HISTORY: None. REVIEW OF SYSTEMS: As per HPI. Rest of the 12-point review of systems reviewed and negative. PHYSICAL EXAMINATION: GENERAL: Comfortable in bed, in no acute distress. VITAL SIGNS: Afebrile. reviewed LUNGS: Clear air entry. No rhonchi. No crepitations. CARDIOVASCULAR: S1 and S2 normal. No murmur. No gallop. ABDOMEN: Soft, nontender. No hepatosplenomegaly. EXTREMITIES: No edema. LABORATORY DATA: reviewed. ASSESSMENT: 1. Bandemia.- resolved 2. Syncope. 3. Fever. PLAN: Currently on IV antibiotic doxycycline, meropenem. ID is following. Also on Tamiflu. Dr. Aaron's note reviewed. neuro consultation by Dr. Looney requested for dizziness and syncope, possible carotid artery stenosis. MRI of the head and MRA of neck ordered by Neurology. Blood count improved. Continue bronchodilator, aspirin 81 mg daily. Labs ordered for the morning, CBC, BMP. She also had hypokalemia, 40 mEq of potassium ordered. CT chest no infiltrate. CT head unremarkable. Desiree Coy MD Objective - Vital Signs/Intake and Output Vital Signs (last 24 hours): Temp Pulse Resp BP Pulse Ox 98 F 73 19 169/69 H 95 06/13/17 18:00 06/13/17 18:00 06/13/17 18:00 06/13/17 18:00 06/13/17 18:00 - Medications Medications: Current Medications Albuterol/Ipratropium (Duoneb 3 Mg/0.5 Mg (3 Ml) Ud) 3 ml IH [id number] [facility] Last Admin: 06/13/17 19:00 Dose: 3 ml Aspirin (Ecotrin) 81 mg PO DAILY [facility] Last Admin: 06/13/17 11:35 Dose: 81 mg Doxycycline Hyclate (Doryx) 100 mg PO Q12 [facility] PRN Reason: Protocol Stop: 06/20/17 22:01 Last Admin: 06/13/17 21:46 Dose: 100 mg Enoxaparin Sodium (Lovenox) 60 mg SC Q12 [facility] PRN Reason: Protocol Last Admin: 06/13/17 21:46 Dose: 60 mg Sodium Chloride (Sodium Chloride 0.9%) 1,000 mls @ 100 mls/hr IV .Q10H [facility] Last Admin: 06/13/17 21:48 Dose: 100 mls/hr Meropenem (Merrem Iv 1 Gm Premix) 50 mls @ 100 mls/hr IVPB Q8 [facility] PRN Reason: Protocol Stop: 06/19/17 22:01 Last Admin: 06/13/17 21:46 Dose: 100 mls/hr Metoprolol Tartrate (Lopressor) 50 mg PO BID [facility] Last Admin: 06/13/17 17:35 Dose: 50 mg Oseltamivir Phosphate (Tamiflu Cap) 75 mg PO BID [facility] PRN Reason: Protocol Stop: 06/16/17 11:03 Last Admin: 06/13/17 17:37 Dose: 75 mg - Labs Labs: 06/11/17 07:41 06/13/17 10:30
[2017-06-14] MEDS: Albuterol-Ipratrop 3 mg / 0.5 (3 ml) UD IH SCH ×4 (01:11→19:48)
[2017-06-14] MEDS: Meropenem IV 1 gm in NS 50 ML IVPB SCH ×3 (05:07→21:12)
[2017-06-14] MEDS: Sodium Chloride 0.9% 1,000 ML IV SCH (05:10)
--- NOTE | 2017-06-14 07:34 | CP.PCM.PN ---
Subjective - Date & Time of Evaluation Date of Evaluation: 06/14/17 Time of Evaluation: 06:50 - Subjective Subjective: Seen and examined by me and Dr. Samano Reason for consultation and follow up: Positive troponin, admitted with altered mental status,complaints of shortness of breath one flight of stairs,history of emphysema, ex-smoker subjective: Feels okay,Denies chest pain and shortness of breath, out of bed to commode Objective - Vital Signs/Intake and Output Vital Signs (last 24 hours): Temp Pulse Resp BP Pulse Ox 97.4 F L 78 20 161/68 H 95 06/14/17 06:00 06/14/17 06:00 06/14/17 06:00 06/14/17 06:00 06/14/17 06:00 Intake and Output: 06/14/17 06/14/17 06:59 18:59 Intake Total 240 Balance 240 - Medications Medications: Current Medications Albuterol/Ipratropium (Duoneb 3 Mg/0.5 Mg (3 Ml) Ud) 3 ml IH [id number] [facility] Last Admin: 06/14/17 07:26 Dose: 3 ml Aspirin (Ecotrin) 81 mg PO DAILY [facility] Last Admin: 06/13/17 11:35 Dose: 81 mg Doxycycline Hyclate (Doryx) 100 mg PO Q12 [facility] PRN Reason: Protocol Stop: 06/20/17 22:01 Last Admin: 06/13/17 21:46 Dose: 100 mg Enoxaparin Sodium (Lovenox) 60 mg SC Q12 [facility] PRN Reason: Protocol Last Admin: 06/13/17 21:46 Dose: 60 mg Sodium Chloride (Sodium Chloride 0.9%) 1,000 mls @ 100 mls/hr IV .Q10H [facility] Last Admin: 06/14/17 05:10 Dose: 100 mls/hr Meropenem (Merrem Iv 1 Gm Premix) 50 mls @ 100 mls/hr IVPB Q8 [facility] PRN Reason: Protocol Stop: 06/19/17 22:01 Last Admin: 06/14/17 05:07 Dose: 100 mls/hr Metoprolol Tartrate (Lopressor) 50 mg PO BID [facility] Last Admin: 06/13/17 17:35 Dose: 50 mg Oseltamivir Phosphate (Tamiflu Cap) 75 mg PO BID [facility] PRN Reason: Protocol Stop: 06/16/17 11:03 Last Admin: 06/13/17 17:37 Dose: 75 mg - Labs Labs: 06/11/17 07:41 06/13/17 10:30 - Constitutional Appears: No Acute Distress - Head Exam Head Exam: NORMAL INSPECTION - Eye Exam Eye Exam: Normal appearance Pupil Exam: NORMAL ACCOMODATION - ENT Exam ENT Exam: Mucous Membranes Moist, Normal Exam - Neck Exam Neck Exam: Full ROM Additional comments: Generalized weakness with cane - Respiratory Exam Respiratory Exam: Decreased Breath Sounds, Clear to Ausculation Bilateral, NORMAL BREATHING PATTERN - Cardiovascular Exam Cardiovascular Exam: REGULAR RHYTHM, +S1, +S2 - GI/Abdominal Exam GI & Abdominal Exam: Soft, Normal Bowel Sounds - Extremities Exam Extremities Exam: Full ROM, Normal Capillary Refill Additional comments: Generalized weakness, cane at bedside - Neurological Exam Neurological Exam: Alert, Awake, Oriented x3 - Psychiatric Exam Psychiatric exam: Normal Affect, Normal Mood - Skin Skin Exam: Normal Color, Warm Assessment and Plan - Assessment and Plan (Free Text) Assessment: Impression; Positive troponin, admitted with altered mental status,complaints of shortness of breath one flight of stairs,history of emphysema, ex-smoker Plan: Covered low potassium today, pending lab results today will follow up Vital signs stable, BP improved with Lopressor increased to 50 mg yesterday Heart rate stable,afebrile Doing well May benefit physical therapy Will follow Seen and examined by Dr. Samano
--- NOTE | 2017-06-14 08:16 | PN ---
DATE: SUBJECTIVE: The patient is a 77-year-old seen and examined, daughter at the bedside. She states she has been increasingly confused. Yesterday, she noticed that she had slurred speech and did not make sense of what she was saying, so she was brought to the ER to rule out CVA. PHYSICAL EXAMINATION: GENERAL: On examination today, she is awake and alert. VITAL SIGNS: She is afebrile. Pulse 69, respirations 20, blood pressure 130/54. LUNGS: Bilateral good air flow. No rhonchi or crackles. HEART: S1 and S2 audible. ABDOMEN: Soft. It is nontender. No rebound. No guarding. NEUROLOGIC: The patient is awake, alert, oriented, and communicative. LABORATORY DATA: WBC 4.9, hemoglobin 12.6, hematocrit 37.7, and platelets 102. Chemistries: Sodium 132, potassium 3.5, chloride 101, CO2 23, BUN 19, creatinine 0.9, blood sugar of 90. AST 83, ALT 121. CT scan of the abdomen and pelvis was done. There is no acute finding. ASSESSMENT: 1. Questionable transient ischemic attack. 2. Thrombocytopenia. 3. History of chronic obstructive pulmonary disease. 4. Hyperlipidemia. PLAN: The patient is currently on Vancomycin, Tamiflu, and Meropenem. I will order carotid Doppler and we will order Neuro consult by Dr. Looney, out of bed to chair and physical therapy evaluation will be requested. We will follow up her LFTs. Danna Mosquera MD
[2017-06-14] MEDS: Enoxaparin 60 mg Syringe SC SCH (10:09)
[2017-06-14 11:49] LABS: BASO # 0.06 K/mm3 (0.0-2.0); BASO % 0.6 % (0.0-3.0); EOS # 0.8 (0.0-0.7); EOS % 7.9 % (1.5-5.0); GRAN # 7.76 (1.4-6.5); GRAN % 72.9 % (50.0-68.0); HEMOGLOBIN 12.8 g/dL (12.0-16.0); LYMPH # 1.3 (1.2-3.4); LYMPH % 11.8 % (22.0-35.0); MEAN CELL VOLUME 88.2 fl (80.0-105.0); MEAN CORPUSCULAR HEMOGLOBIN 29.5 pg (25.0-35.0); MEAN CORPUSCULAR HGB CONC 33.4 g/dl (31.0-37.0); MEAN PLATELET VOLUME 9.4 fl (7.0-11.0); MONO # 0.7 (0.1-0.6); MONO % 6.8 % (1.0-6.0); RBC 4.34 10^6/uL (3.5-6.1); RED CELL DISTRIBUTION WIDTH 13.8 % (11.5-14.5); WHITE BLOOD COUNT 10.6 10^3/ul (4.5-11.0)
[2017-06-14 12:02] LABS: ALB/GLOB RATIO 1.1 (1.1-1.8); ALT/SGPT 153 U/L (7-56); AST/SGOT 91 U/L (14-36); BLOOD UREA NITROGEN 5 mg/dL (7-21); CALCIUM 8.7 mg/dL (8.4-10.5); GFR AFRICAN-AMERICAN > 60; GFR NON-AFRICAN AMERICAN > 60
[2017-06-14 13:42] LABS: URINE APPEARANCE CLEAR (CLEAR); URINE BILIRUBIN NEGATIVE (NEGATIVE); URINE BLOOD NEGATIVE (NEGATIVE); URINE COLOR YELLOW (YELLOW); URINE GLUCOSE (UA) NEGATIVE (NEGATIVE); URINE LEUKOCYTE ESTERASE NEGATIVE Leu/uL (NEGATIVE); URINE PROTEIN NEGATIVE mg/dL (<30 mg/dL); URINE UROBILINOGEN 0.2 E.U./dL (<1 E.U./dL)
--- NOTE | 2017-06-14 14:19 | CP.PCM.PN ---
Subjective - Date & Time of Evaluation Date of Evaluation: 06/14/17 Time of Evaluation: 11:45 - Subjective Subjective: No fevers, not in distress. Objective - Vital Signs/Intake and Output Vital Signs (last 24 hours): Temp Pulse Resp BP Pulse Ox 97.4 F L 78 20 161/68 H 95 06/14/17 06:00 06/14/17 06:00 06/14/17 06:00 06/14/17 06:00 06/14/17 06:00 Intake and Output: 06/14/17 06/14/17 06:59 18:59 Intake Total 240 Balance 240 - Medications Medications: Current Medications Albuterol/Ipratropium (Duoneb 3 Mg/0.5 Mg (3 Ml) Ud) 3 ml IH [id number] [facility] Last Admin: 06/14/17 07:26 Dose: 3 ml Aspirin (Ecotrin) 81 mg PO DAILY [facility] Last Admin: 06/13/17 11:35 Dose: 81 mg Doxycycline Hyclate (Doryx) 100 mg PO Q12 [facility] PRN Reason: Protocol Stop: 06/20/17 22:01 Last Admin: 06/13/17 21:46 Dose: 100 mg Enoxaparin Sodium (Lovenox) 60 mg SC Q12 [facility] PRN Reason: Protocol Last Admin: 06/13/17 21:46 Dose: 60 mg Sodium Chloride (Sodium Chloride 0.9%) 1,000 mls @ 100 mls/hr IV .Q10H [facility] Last Admin: 06/14/17 05:10 Dose: 100 mls/hr Meropenem (Merrem Iv 1 Gm Premix) 50 mls @ 100 mls/hr IVPB Q8 [facility] PRN Reason: Protocol Stop: 06/19/17 22:01 Last Admin: 06/14/17 05:07 Dose: 100 mls/hr Metoprolol Tartrate (Lopressor) 50 mg PO BID [facility] Last Admin: 06/13/17 17:35 Dose: 50 mg Oseltamivir Phosphate (Tamiflu Cap) 75 mg PO BID [facility] PRN Reason: Protocol Stop: 06/16/17 11:03 Last Admin: 06/13/17 17:37 Dose: 75 mg - Labs Labs: 06/11/17 07:41 06/13/17 10:30 - Constitutional Appears: Chronically Ill - Head Exam Head Exam: NORMAL INSPECTION - ENT Exam ENT Exam: Mucous Membranes Moist - Neck Exam Neck Exam: absent: Meningismus - Respiratory Exam Respiratory Exam: Decreased Breath Sounds - Cardiovascular Exam Cardiovascular Exam: +S1, +S2 - GI/Abdominal Exam GI & Abdominal Exam: Soft. absent: Tenderness Assessment and Plan - Assessment and Plan (Free Text) Plan: Assessment Systemic inflammatory response syndrome, R/O systemic viral illness, R/O Influenza, R/O COPD exacerbation with acute bronchitis HTN COPD anxiety disorder Plan continue Merrem and Doxycycline day 4 to complete 4-7 days complete 5 days of Tamiflu (day 4) will continue to monitor clinically
--- NOTE | 2017-06-14 15:32 | CP.PCM.PN ---
Subjective - Date & Time of Evaluation Date of Evaluation: 06/14/17 Time of Evaluation: 14:00 - Subjective Subjective: NEUROLOGY FOLLOW UP: DATE: 06/14/2017 CHIEF COMPLAINT: Followup for altered mental status. SUBJECTIVE: She is doing much better. Her speech is more clear and is now less confused. No focal weakness of extremities. Repeat ct head showed no acute abnormality. She is abx for lingua infiltrate in the lungs. PAST MEDICAL HISTORY: COPD, hypertension, emphysema, quit smoking 25 years ago. FAMILY HISTORY: Noncontributory. MEDICATIONS: Reviewed by nurse reconciliation sheet. ALLERGIES: SULFA DRUGS. REVIEW OF SYSTEMS: A 14-point review of systems negative except as per the HPI. LABORATORY DATA: Today: Potassium is 2.9, which is low. PHYSICAL EXAMINATION: VITAL SIGNS: Reviewed. GENERAL: Patient is sitting up at the edge of the bed, in no acute distress. HEENT: Head is atraumatic and normocephalic. PERRLA. Extraocular muscles intact. NECK: Supple. No JVD. No adenopathy noted. LUNGS: Clear to auscultation. No adventitious sounds. HEART: S1, S2, normal rate and rhythm. No murmurs, rubs or gallops. ABDOMEN: Soft, nontender, nondistended. Bowel sounds present. EXTREMITIES: No clubbing, no cyanosis. Peripheral pulses are 2+ felt bilaterally. NEUROLOGIC: Patient is alert, oriented to person, place, month and year. Speech is fluent without any errors. Recall after 5 minutes is 0/3. Poor attention span. Slow thought process. Cranial nerves II to XII intact. Motor: Slight increased tone throughout. Moves all extremities equally. No pronator drift seen. Sensory: Light touch, pinprick, proprioception and vibration intact. DTRs are 2+ throughout and 1 at the ankles. Coordination: [id number] intact. No dysmetria noted. Gait is deferred now. ASSESSMENT AND PLAN: This is a 77-year-old woman with past medical history of hypertension, emphysema , chronic obstructive pulmonary disease, ex-smoker, came in with altered mental status, found to have elevated fever of 102.4 with bandemia 14, elevated troponin secondary to underlying possible coronary artery disease/ischemia. I was called for altered mental status, could be likely secondary to toxic metabolic encephalopathy and with some mild intermittent delirium. Patient was initially hyponatremic with elevated procalcitonin Her carotid Doppler showed some possible distal obstruction in the right common and internal carotid arteries, but could represent distal obstruction, but otherwise , there is no significant internal carotid artery stenosis. She is on abx for lingula infiltrate of the lungs. RECOMMENDATIONS: At this time, recommend: 1. aspirin and Lipitor for stroke prevention. 2. Monitor electrolytes and correct accordingly. 3. Continue with PT/OT could recommend some rehab. 4. Cardiology followup. Thank you Garcia Looney MD Objective - Vital Signs/Intake and Output Vital Signs (last 24 hours): Temp Pulse Resp BP Pulse Ox 97.4 F L 69 18 177/73 H 95 06/14/17 12:00 06/14/17 12:00 06/14/17 12:00 06/14/17 12:00 06/14/17 06:00 Intake and Output: 06/14/17 06/14/17 06:59 18:59 Intake Total 240 Balance 240 - Medications Medications: Current Medications Albuterol/Ipratropium (Duoneb 3 Mg/0.5 Mg (3 Ml) Ud) 3 ml IH [id number] [facility] Last Admin: 06/14/17 13:20 Dose: 3 ml Aspirin (Ecotrin) 81 mg PO DAILY [facility] Last Admin: 06/14/17 10:09 Dose: 81 mg Doxycycline Hyclate (Doryx) 100 mg PO Q12 [facility] PRN Reason: Protocol Stop: 06/20/17 22:01 Last Admin: 06/14/17 10:09 Dose: 100 mg Enoxaparin Sodium (Lovenox) 40 mg SC DAILY [facility] PRN Reason: Protocol Meropenem (Merrem Iv 1 Gm Premix) 50 mls @ 100 mls/hr IVPB Q8 [facility] PRN Reason: Protocol Stop: 06/19/17 22:01 Last Admin: 06/14/17 14:42 Dose: 100 mls/hr Metoprolol Tartrate (Lopressor) 50 mg PO BID [facility] Last Admin: 06/14/17 10:09 Dose: 50 mg Oseltamivir Phosphate (Tamiflu Cap) 75 mg PO BID [facility] PRN Reason: Protocol Stop: 06/16/17 11:03 Last Admin: 06/14/17 10:09 Dose: 75 mg - Labs Labs: 06/14/17 11:45 06/14/17 11:45
[2017-06-14] MEDS ORDERED: Potassium Chloride 20 mEq ER Tab PO ONE (16:01)
--- NOTE | 2017-06-14 18:12 | PN ---
DATE: SUBJECTIVE: The patient is 77-year-old, seen and examined. Seems to be doing better. PHYSICAL EXAMINATION GENERAL: Awake, alert, oriented, communicative, afebrile. VITAL SIGNS: The patient is afebrile. Pulse 69, respirations 18, and blood pressure 177/73. LUNGS: Bilateral good airflow. No rhonchi or crackle. HEART: S1 and S2 audible. ABDOMEN: Soft, nontender. No rebound. No guarding. NEUROLOGICAL: The patient is awake, alert, oriented and communicative. LABORATORY DATA: WBC 10.6, hemoglobin 12.8, hematocrit 38.3, and platelet of 188,000. Chemistry: Sodium 138, potassium 3.5, chloride 101, CO2 31, BUN 5, creatinine 0.4, and blood sugar of 96. CT scan of the chest was done that showed new bilateral pleural effusion, new dependent atelectatic changes and small lingular infiltrate. ASSESSMENT 1. Fever, probably secondary to pneumonia. 2. History of chronic obstructive pulmonary disease. 3. Hypertension. 4. Mild dementia, questionable transient ischemic attack. 5. Hyperlipidemia. 6. Hyponatremia, resolved. 7. Mild renal insufficiency. PLAN: Dr. Samano discussed with patient's daughter who was by the bedside for stress test. We will continue doxycycline. Continue nebulizer treatment. She is currently on meropenem and Tamiflu. The Physical Therapy evaluation has been requested and also, requested for TCU evaluation. If accepted, can be transferred after stress test. Danna Mosquera MD
[2017-06-14] MEDS: Potassium & Sodium Phosphate PO SCH (18:42)
[2017-06-15] MEDS: Albuterol-Ipratrop 3 mg / 0.5 (3 ml) UD IH SCH ×3 (02:46→13:19)
[2017-06-15] MEDS: Meropenem IV 1 gm in NS 50 ML IVPB SCH ×2 (05:03→13:52)
--- NOTE | 2017-06-15 06:43 | CP.PCM.PN ---
Subjective - Date & Time of Evaluation Date of Evaluation: 06/15/17 Time of Evaluation: 06:30 - Subjective Subjective: Seen and examined by me and Dr. Samano Reason for consultation and follow up: Positive troponin, admitted with altered mental status,complaints of shortness of breath one flight of stairs,history of emphysema, ex-smoker Subjective: out of bed to commode. Feels okay,Denies chest pain and shortness of breath, verbalized not wanting to go for stress test Objective - Vital Signs/Intake and Output Vital Signs (last 24 hours): Temp Pulse Resp BP Pulse Ox 97.6 F 71 20 155/98 H 93 L 06/15/17 06:00 06/15/17 06:00 06/15/17 06:00 06/15/17 06:00 06/15/17 06:00 Intake and Output: 06/14/17 06/15/17 18:59 06:59 Intake Total 240 100 Balance 240 100 - Medications Medications: Current Medications Albuterol/Ipratropium (Duoneb 3 Mg/0.5 Mg (3 Ml) Ud) 3 ml IH [id number] [facility] Last Admin: 06/15/17 02:46 Dose: Not Given Aspirin (Ecotrin) 81 mg PO DAILY [facility] Last Admin: 06/14/17 10:09 Dose: 81 mg Doxycycline Hyclate (Doryx) 100 mg PO Q12 [facility] PRN Reason: Protocol Stop: 06/20/17 22:01 Last Admin: 06/14/17 21:11 Dose: 100 mg Enoxaparin Sodium (Lovenox) 40 mg SC DAILY [facility] PRN Reason: Protocol Meropenem (Merrem Iv 1 Gm Premix) 50 mls @ 100 mls/hr IVPB Q8 [facility] PRN Reason: Protocol Stop: 06/19/17 22:01 Last Admin: 06/15/17 05:03 Dose: 100 mls/hr Metoprolol Tartrate (Lopressor) 50 mg PO BID [facility] Last Admin: 06/14/17 18:42 Dose: 50 mg Oseltamivir Phosphate (Tamiflu Cap) 75 mg PO BID [facility] PRN Reason: Protocol Stop: 06/16/17 11:03 Last Admin: 06/14/17 18:42 Dose: 75 mg Potassium Phos/Sodium Phos (Neutra-Phos) 1 pkt PO BID [facility] Stop: 06/16/17 18:00 Last Admin: 06/14/17 18:42 Dose: 1 pkt - Labs Labs: 06/14/17 11:45 06/14/17 11:45 - Constitutional Appears: No Acute Distress - Head Exam Head Exam: NORMOCEPHALIC - Eye Exam Eye Exam: Normal appearance Pupil Exam: NORMAL ACCOMODATION - ENT Exam ENT Exam: Mucous Membranes Moist - Neck Exam Neck Exam: Normal Inspection - Respiratory Exam Respiratory Exam: Clear to Ausculation Bilateral, NORMAL BREATHING PATTERN - Cardiovascular Exam Cardiovascular Exam: REGULAR RHYTHM, +S1, +S2 - GI/Abdominal Exam GI & Abdominal Exam: Soft, Normal Bowel Sounds - Extremities Exam Extremities Exam: Normal Capillary Refill Additional comments: weakness uses cane - Neurological Exam Neurological Exam: Alert, Awake, Oriented x3 - Psychiatric Exam Psychiatric exam: Normal Affect, Normal Mood Assessment and Plan - Assessment and Plan (Free Text) Assessment: Impression: Positive troponin,history of emphysema, ex-smoker, bronchitis, hypertension Plan: Hypertension- Blood pressure controlled Continue Lopressor 50 mg BID, ASA 81 mg daily scheduled for Stress test today however refusing Shortness of breath resolved. K 3.5 On Neutrophos 1 pack BID Will follow up Plan and treatment discussed with Dr. Samano
[2017-06-15] MEDS: Potassium & Sodium Phosphate PO SCH ×2 (09:45→17:38)
[2017-06-15] MEDS ORDERED: Enoxaparin 40 mg Syringe SC SCH (10:00)
--- NOTE | 2017-06-15 16:52 | CP.PCM.PN ---
Subjective - Date & Time of Evaluation Date of Evaluation: 06/15/17 Time of Evaluation: 11:50 - Subjective Subjective: Comfortable on a chair, no fevers, not in distress. Objective - Vital Signs/Intake and Output Vital Signs (last 24 hours): Temp Pulse Resp BP Pulse Ox 97.6 F 84 20 154/55 H 93 L 06/15/17 06:00 06/15/17 09:45 06/15/17 06:00 06/15/17 09:45 06/15/17 06:00 Intake and Output: 06/15/17 06/15/17 06:59 18:59 Intake Total 100 Balance 100 - Medications Medications: Current Medications Albuterol/Ipratropium (Duoneb 3 Mg/0.5 Mg (3 Ml) Ud) 3 ml IH [id number] [facility] Last Admin: 06/15/17 07:30 Dose: 3 ml Aspirin (Ecotrin) 81 mg PO DAILY [facility] Last Admin: 06/15/17 09:45 Dose: 81 mg Doxycycline Hyclate (Doryx) 100 mg PO Q12 [facility] PRN Reason: Protocol Stop: 06/20/17 22:01 Last Admin: 06/15/17 09:44 Dose: 100 mg Enoxaparin Sodium (Lovenox) 40 mg SC DAILY [facility] PRN Reason: Protocol Last Admin: 06/15/17 09:45 Dose: 40 mg Meropenem (Merrem Iv 1 Gm Premix) 50 mls @ 100 mls/hr IVPB Q8 [facility] PRN Reason: Protocol Stop: 06/19/17 22:01 Last Admin: 06/15/17 05:03 Dose: 100 mls/hr Metoprolol Tartrate (Lopressor) 50 mg PO BID [facility] Last Admin: 06/15/17 09:45 Dose: 50 mg Oseltamivir Phosphate (Tamiflu Cap) 75 mg PO BID [facility] PRN Reason: Protocol Stop: 06/16/17 11:03 Last Admin: 06/15/17 09:44 Dose: 75 mg Potassium Phos/Sodium Phos (Neutra-Phos) 1 pkt PO BID [facility] Stop: 06/16/17 18:00 Last Admin: 06/15/17 09:45 Dose: 1 pkt - Labs Labs: 06/14/17 11:45 06/14/17 11:45 - Constitutional Appears: Chronically Ill - Head Exam Head Exam: NORMAL INSPECTION - ENT Exam ENT Exam: Mucous Membranes Moist - Neck Exam Neck Exam: absent: Meningismus - Respiratory Exam Respiratory Exam: Decreased Breath Sounds - Cardiovascular Exam Cardiovascular Exam: +S1, +S2 - GI/Abdominal Exam GI & Abdominal Exam: Soft. absent: Tenderness Assessment and Plan - Assessment and Plan (Free Text) Plan: Assessment Systemic inflammatory response syndrome, R/O systemic viral illness, R/O Influenza, R/O COPD exacerbation with acute bronchitis HTN COPD anxiety disorder Plan continue Merrem and Doxycycline day 5 to complete 4-7 days complete 5 days of Tamiflu (day 5) will continue to monitor clinically
--- NOTE | 2017-06-15 17:05 | PN ---
DATE: 06/15/2017 TIME: 04:40 p.m. SUBJECTIVE: I had a detailed conservation with Dr. Looney concerning this patient and I reviewed her imaging. In brief, she was admitted with mental status changes and fever. She had no focal neurologic deficits. Her carotid ultrasound was significant for an abnormal high resistance waveform in the right ICA. Though the stenosis at the origin is not sonographically significant. The high resistance pattern on the right is suggestive of distal occlusive disease. She has mild blockage on the left with a normal diastolic waveform. Her head CT was unremarkable. She could not tolerate MR exams due to anxiety and claustrophobia. I agree with conservative management at this point. The patient is asymptomatic. She should be on antiplatelet therapy and statins. It may be useful to repeat a carotid ultrasound in 6-8 weeks to see if the high resistance waveform on the right persists. Certainly, if she develops focal right hemispheric symptoms, further evaluation including angiography should be considered to evaluate for distal ICA or intracranial disease. Hema Garza MD AMELIE
[2017-06-15 17:39] VITALS: BP 178/68; PULSE 79
[2017-06-15 17:56] VITALS: RESP 79; TEMP 97.4; O2SAT 95
--- NOTE | 2017-06-16 12:23 | DS ---
HISTORY OF PRESENT ILLNESS: Patient is 77 years old who lives with her daughter who noticed that when she woke up on 06/10/2017, she was little confused. She was slurring her word. Daughter thought she was having stroke, so she called ambulance and she was brought to the emergency room. She does have a history of having scanty cough. No history of high-grade fever. However, the patient was noticed to have temperature of 101.4 on 06/10/2017. Sepsis workup was done. Blood cultures, urine cultures were negative. CT scan of the chest was done, shows new bibasilar infiltrates associated with small right and left pleural effusion. CT scan of the head is negative. Carotid Doppler shows . Patient was evaluated by Infectious Disease and non destructive evaluation specialist. Patient was offered stress test, but she states it is too tiring, she cannot be out of bed for 3-4 hours. ASSESSMENT: 1. Questionable transient ischemic attack. 2. Altered mental status secondary to community-acquired pneumonia. 3. Late history of hypertension. 4. Hyperlipidemia. 5. History of smoking. 6. Bibasilar infiltrate. 7. Mild renal insufficiency. 8. Hyponatremia, resolved. 9. History of chronic obstructive pulmonary disease. PLAN: Currently, the patient is on doxycycline. She is getting nebulizer treatment. She is on metoprolol, meropenem, and Tamiflu. Patient refuses stress test. Plan is being made to check patient to rehab and TCU. Once bed is available, she will be transferred to TCU. Danna Mosquera MD
== END 2017-06-15 20:06 | DRG 190 ==
LOC: ED 13:46 → ERH 17:24 → 3RSO 06-11 01:01
PROVIDERS: ADMIT Internal Medicine; ATTEND Internal Medicine
DX: J44.1 Chronic obstructive pulmonary disease with (acute) exacerbation (principal); G92 Toxic encephalopathy; R65.10 Systemic inflammatory response syndrome (SIRS) of non-infectious origin without acute organ dysfunction; E87.1 Hypo-osmolality and hyponatremia; J20.9 Acute bronchitis, unspecified; J44.0 Chronic obstructive pulmonary disease with (acute) lower respiratory infection; D69.6 Thrombocytopenia, unspecified; F03.90 Unspecified dementia, unspecified severity, without behavioral disturbance, psychotic disturbance, mood disturbance, and anxiety; I10 Essential (primary) hypertension; E78.5 Hyperlipidemia, unspecified; N28.9 Disorder of kidney and ureter, unspecified; D72.825 Bandemia; E87.6 Hypokalemia; F41.9 Anxiety disorder, unspecified; F40.240 Claustrophobia; Z88.2 Allergy status to sulfonamides; Z87.891 Personal history of nicotine dependence

== ENCOUNTER 2017-06-15 20:06 | Inpatient (IN) | payer OTHER, MEDICAID ==
[2017-06-15] MEDS ORDERED: Meropenem IV 1 gm in NS 50 ML IVPB SCH ×2 (22:00→22:40)
[2017-06-16 00:31] VITALS: BMI 23.9
[2017-06-16] MEDS: Albuterol-Ipratrop 3 mg / 0.5 (3 ml) UD IH SCH ×5 (02:05→19:39)
[2017-06-16] MEDS: Enoxaparin 40 mg Syringe SC SCH (05:31)
[2017-06-16] MEDS: Meropenem 500 MG in Sodium Chloride 0.9% 50 ML IVPB SCH ×3 (08:05→21:30)
[2017-06-16] MEDS ORDERED: Potassium & Sodium Phosphate PO SCH (10:00)
[2017-06-16] MEDS: Potassium & Sodium Phosphate PO SCH (18:29)
[2017-06-17] MEDS: Albuterol-Ipratrop 3 mg / 0.5 (3 ml) UD IH SCH ×4 (03:05→19:28)
--- NOTE | 2017-06-17 04:30 | HP ---
HISTORY OF PRESENT ILLNESS: The patient is a 77-year-old, was initially admitted because of altered mental status. Her initial workup was unremarkable; however, she is found to have high velocity flow in her right carotid. With that, I spoke to the patient's daughter, Greer. This carotid Doppler has to be repeated in six to eight weeks after putting her on statin and aspirin. The patient was also offered to have stress test done, but she refused. PAST MEDICAL HISTORY: Significant for, 1. Hypertension. 2. Chronic obstructive pulmonary disease. 3. Hyperlipidemia. ALLERGIES: SHE IS ALLERGIC TO FISH. FAMILY HISTORY: Not relevant. SOCIAL HISTORY: She lives with her daughter, who is upstairs and she used to be heavy smoker, but quit few years ago. MEDICATIONS AT HOME: She is on Micardis 40 mg daily, hydralazine 100 mg daily, Norvasc 10 mg daily. PHYSICAL EXAMINATION: GENERAL: She is awake, alert, oriented, communicative. VITAL SIGNS: She is afebrile, pulse 74, respirations 18, blood pressure 163/62. LUNGS: Bilateral good airflow. No rhonchi or crackle. HEART: S1 and S2 audible. ABDOMEN: Soft, nontender, no rebound, no guarding. NEUROLOGIC: The patient is awake, alert, oriented, able to communicate. ASSESSMENT AND PLAN: 1. Altered mental status. 2. Bilateral pulmonary infiltrate. 3. History of chronic obstructive pulmonary disease. 4. Anxiety disorder. 5. Hypertension. 6. Chronic obstructive pulmonary disease exacerbation with asthmatic bronchitis. PLAN: Currently, the patient is on meropenem and doxycycline. Continue nebulizer treatment. She is on aspirin, metoprolol, and DVT prophylaxis. We will follow up the patient in a.m. Danna Mosquera MD
[2017-06-17] MEDS: Enoxaparin 40 mg Syringe SC SCH (05:27)
[2017-06-17] MEDS: Meropenem 500 MG in Sodium Chloride 0.9% 50 ML IVPB SCH ×3 (05:27→21:40)
[2017-06-17] MEDS: Potassium & Sodium Phosphate PO SCH ×2 (08:25→17:35)
[2017-06-17] MEDS ORDERED: Benzocaine/Menthol (Cepacol) Lozenge MT PRN (16:41)
--- NOTE | 2017-06-17 17:41 | PN ---
DATE: SUBJECTIVE: The patient is 77 years old, seen and examined, doing well, participating in therapy. No nausea or vomiting. No diarrhea. Awake, alert, oriented, communicative. PHYSICAL EXAMINATION: VITAL SIGNS: She is afebrile, pulse 67, respirations 20, blood pressure 172/68. LUNGS: Bilateral good airflow. No rhonchi or crackle. HEART: S1 and S2 audible. ABDOMEN: Soft. Nontender. No hepatosplenomegaly. NEUROLOGIC: The patient is awake, alert, oriented, able to communicate. EXTREMITIES: Bilateral leg, no edema. Participating in therapy. ASSESSMENT: 1. Status post altered mental status, probably sundowning and dementia. 2. Right carotid stenosis. 3. Hypertension. 4. Hyperlipidemia. 5. History of chronic obstructive pulmonary disease. 6. History of smoking. PLAN: We will continue the patient on doxycycline nebulizer treatment, aspirin, metoprolol. She is on DVT prophylaxis. She is on meropenem. We will follow up this patient in the a.m. Danna Mosquera MD
[2017-06-18] MEDS: Albuterol-Ipratrop 3 mg / 0.5 (3 ml) UD IH SCH ×4 (01:50→20:55)
[2017-06-18] MEDS: Enoxaparin 40 mg Syringe SC SCH (05:23)
[2017-06-18] MEDS: Potassium & Sodium Phosphate PO SCH ×2 (08:16→17:31)
--- NOTE | 2017-06-18 14:58 | PN ---
DATE: SUBJECTIVE: The patient is 77 years old seen and examined, sitting in chair, seems to be comfortable. PHYSICAL EXAMINATION: VITAL SIGNS: She is afebrile, pulse 73, respirations 18, blood pressure 159/62. LUNGS: Bilateral good airflow. No rhonchi or crackle. HEART: S1, S2 audible. ABDOMEN: Soft, nontender. No rebound, no guarding. NEUROLOGIC: She is awake and alert, able to communicate. ASSESSMENT: 1. Uncontrolled hypertension. 2. Hyperlipidemia. 3. Chronic obstructive pulmonary disease. 4. Status post altered mental status, seems to be improved. PLAN: Patient is ambulatory. I will discontinue her Lovenox, start her on Norvasc and monitor blood pressure closely and encourage physical therapy. Danna Mosquera MD
[2017-06-19] MEDS: Albuterol-Ipratrop 3 mg / 0.5 (3 ml) UD IH SCH ×4 (01:11→21:50)
[2017-06-19] MEDS: Potassium & Sodium Phosphate PO SCH ×2 (08:37→17:35)
[2017-06-20] MEDS: Albuterol-Ipratrop 3 mg / 0.5 (3 ml) UD IH SCH ×4 (03:05→21:40)
[2017-06-20] MEDS: Potassium & Sodium Phosphate PO SCH ×2 (08:06→17:14)
[2017-06-20] MEDS: POLYETHYLENE GLYCOL 3350 17 GM/Dose PACKET PO SCH (17:13)
[2017-06-21] MEDS: Albuterol-Ipratrop 3 mg / 0.5 (3 ml) UD IH SCH ×4 (07:04→20:33)
[2017-06-21] MEDS: Potassium & Sodium Phosphate PO SCH ×2 (08:41→17:41)
[2017-06-21] MEDS: POLYETHYLENE GLYCOL 3350 17 GM/Dose PACKET PO SCH ×2 (11:09→17:41)
[2017-06-21 13:21] VITALS: RESP 18
[2017-06-22] MEDS: Albuterol-Ipratrop 3 mg / 0.5 (3 ml) UD IH SCH ×5 (02:40→19:51)
[2017-06-22] MEDS: Potassium & Sodium Phosphate PO SCH ×2 (07:47→18:03)
[2017-06-22] MEDS: POLYETHYLENE GLYCOL 3350 17 GM/Dose PACKET PO SCH ×2 (09:32→18:03)
[2017-06-23] MEDS: Albuterol-Ipratrop 3 mg / 0.5 (3 ml) UD IH SCH ×4 (01:27→19:03)
--- NOTE | 2017-06-23 02:09 | PN ---
DATE: SUBJECTIVE: The patient is 77-year-old, seen and examined, sitting on bed. Daughter was at the bedside who reported that over the weekend patient has chest pain, she was diaphoretic, she was having lightheadedness. Currently feels well. I had a long discussion with the patient, she agreed to have a stress test done. PHYSICAL EXAMINATION: GENERAL: She looks comfortable. VITAL SIGNS: She is afebrile, pulse 72, respirations 18, blood pressure 149/56. LUNGS: Bilateral good airflow. No rhonchi or crackle. HEART: S1 and S2 audible. ABDOMEN: Soft, nontender. No rebound. No guarding. NEUROLOGIC: The patient is awake and alert, oriented, communicative. LABORATORY DATA: No new lab available today. ASSESSMENT: 1. Chest pain, rule out underlying coronary ischemia. 2. Hypertension. 3. Carotid stenosis. 4. Mild dementia. 5. Chronic constipation. PLAN: I will request Dr. Samano to reevaluate patient if patient agreed for a stress test and I will request Dr. Hema Garza to evaluate patient for possible angiography. As per daughter, she had a discussion with Dr. Hema Garza who wanted her to do carotid angiogram. We will reevaluate this patient in a.m. Danna Mosquera MD
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
[2017-06-23] MEDS: Potassium & Sodium Phosphate PO SCH ×2 (08:26→17:13)
[2017-06-23] MEDS: POLYETHYLENE GLYCOL 3350 17 GM/Dose PACKET PO SCH ×2 (10:06→17:13)
[2017-06-24] MEDS: Albuterol-Ipratrop 3 mg / 0.5 (3 ml) UD IH SCH ×3 (01:37→13:25)
--- NOTE | 2017-06-24 04:58 | DS ---
HISTORY OF PRESENT ILLNESS: Patient is a 77-year-old, seen and examined. She had episode of chest pain with diaphoresis [address] Samano was consulted. I spoke to Dr. Dillard. Planning to have stress test done tomorrow. PHYSICAL EXAMINATION: GENERAL: Today, patient is awake, alert, oriented, and communicative. No nausea or vomiting. No weakness, numbness. VITAL SIGNS: She is afebrile. Pulse 70, respirations 18, blood pressure 140/61. LUNGS: Bilateral good airflow. No rhonchi or crackle. HEART: S1 and S2 audible. ABDOMEN: Soft, nontender, no rebound, no guarding. NEUROLOGIC: The patient is awake, alert, oriented, communicative, ambulatory. ASSESSMENT: 1. Status post altered mental status. 2. Status post lingular infiltrate. 3. Diaphoresis with chest discomfort, rule out underlying coronary artery disease. 4. Hypertension. 5. History of chronic obstructive pulmonary disease. 6. Carotid stenosis above bifurcation of internal carotid. PLAN: I spoke to Dr. Dillard. He is planning to schedule stress test in a.m. I also spoke to Dr. Hema Garza. According to Neurology evaluation, this was a nonfocal event, probably metabolic encephalopathy. Given her age, having intervention or angiography can lead to complication. However, I spoke to Dr. Hema Garza who will talk to daughter, and after explaining, it will be decided if we should pursue doing carotid angiography or not. Patient can be discharged today to have stress test done as outpatient. Danna Mosquera MD
[2017-06-24] MEDS: Potassium & Sodium Phosphate PO SCH ×2 (08:42→17:04)
--- NOTE | 2017-06-24 08:52 | CON ---
DATE: 06/23/2017 REASON FOR DICTATION: Addendum to the initial consult dictated by our nurse practitioner Neda Monzon. REASON FOR ADDENDUM: The patient is willing for a stress test. Discussed at length with the patient, patient is willing for the stress test. Initially patient was in the medical floor, refusing, but scheduled, but now patient is willing. Discussed with Dr. Mosquera. Since the patient had large breakfast, we cannot recommend it today, we will do inker machine. Discussed with the nurse, discussed with the TCU nurse, nursing staff taking care of the patient. Over the weekend, patient had chest pain and diaphoresis, so Cardiology consult was called to reassess and scheduled for a stress test, which we mentioned and patient agreed with. We will keep n.p.o. after midnight for the stress test tomorrow. Angie Dillard MD MTDJose Raul
[2017-06-24] MEDS: POLYETHYLENE GLYCOL 3350 17 GM/Dose PACKET PO SCH ×2 (10:46→18:48)
[2017-06-24 17:11] VITALS: BP 146/63; PULSE 76
[2017-06-24 17:57] VITALS: TEMP 98; O2SAT 93
--- NOTE | 2017-06-24 17:59 | PN ---
DATE: 06/24/2017 REASON FOR CONSULTATION AND FOLLOWUP: Cardiac evaluation, history of chest pain, going for stress test today. SUBJECTIVE: The patient denies any chest pain, shortness of breath or any palpitation. OBJECTIVE: GENERAL: Not in any apparent distress. VITAL SIGNS: As follows: Temperature afebrile, heart rate , blood pressure 130/62. HEENT: PERRLA. Extraocular muscles intact. NECK: Supple. No carotid bruit or thyromegaly. CHEST: Clear to auscultation. HEART: S1, S2 regular. ABDOMEN: Soft. EXTREMITIES: Clubbing and cyanosis negative. LABORATORY DATA: Blood workup as follows, last blood workup available 06/14/2017: WBC 10.6, hemoglobin 12.8, hematocrit 38.3, platelet count 188. Sodium 130, potassium 3.5, chloride 101, carbon dioxide 31, anion gap of 10, BUN 5, creatinine 0.4 as of 06/14/2017. IMPRESSION: Positive troponin, most likely initially when the patient was admitted; altered mental status; sepsis; shortness of breath; excess smoker. At that time, patient refused a stress test as schedule. While the patient is on the floor now, the patient agree that we will go ahead with a stress test today. Discussed with Dr. Mosquera at length. After the stress test, patient can be discharged. Follow up result of the stress test as outpatient. In the interim, continue baby aspirin, continue metoprolol 50 mg twice a day. We will follow with you. Thank you, Dr. Mosquera, for providing us the opportunity in taking care of the patient Cammie Beltran. Angie Dillard MD
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
== END 2017-06-24 18:11 | disposition home or self-care (01) | DRG 192 ==
LOC: TRCU 20:06
PROVIDERS: ADMIT Internal Medicine; ATTEND Internal Medicine
PROC: F07Z9FZ Gait Training/Functional Ambulation Treatment using Assistive, Adaptive, Supportive or Protective Equipment (ICD-10-PCS; principal; 2017-06-17)
PROC: F07Z5ZZ Bed Mobility Treatment (ICD-10-PCS; 2017-06-17)
PROC: F07Z8FZ Transfer Training Treatment using Assistive, Adaptive, Supportive or Protective Equipment (ICD-10-PCS; 2017-06-17)
PROC: F07L6YZ Therapeutic Exercise Treatment of Musculoskeletal System - Lower Back / Lower Extremity using Other Equipment (ICD-10-PCS; 2017-06-17)
PROC: F08Z1ZZ Dressing Techniques Treatment (ICD-10-PCS; 2017-06-17)
PROC: F08Z2FZ Grooming/Personal Hygiene Treatment using Assistive, Adaptive, Supportive or Protective Equipment (ICD-10-PCS; 2017-06-17)
DX: J44.1 Chronic obstructive pulmonary disease with (acute) exacerbation (principal); I65.21 Occlusion and stenosis of right carotid artery; F03.90 Unspecified dementia, unspecified severity, without behavioral disturbance, psychotic disturbance, mood disturbance, and anxiety; F41.9 Anxiety disorder, unspecified; R41.82 Altered mental status, unspecified; I10 Essential (primary) hypertension; R91.8 Other nonspecific abnormal finding of lung field; H40.9 Unspecified glaucoma; K59.09 Other constipation; E78.5 Hyperlipidemia, unspecified; Z87.891 Personal history of nicotine dependence

== ENCOUNTER 2017-08-09 14:17 | Emergency (ER) | payer MEDICARE, MEDICAID ==
[2017-08-09 14:51] VITALS: BMI 21.7
[2017-08-09 15:00] VITALS: RESP 18; TEMP 98.2
--- NOTE | 2017-08-09 15:22 | ED PDOC ---
Arrival/HPI - General Chief Complaint: Trauma Time Seen by Provider: 08/09/17 15:09 Historian: Patient - History of Present Illness Narrative History of Present Illness (Text): 08/09/17 15:19 Pt is a 77 yr old female BIBA for a fall she had today while shopping at [employer]. Pt said she went to take a step and missed, thus falling forward and hitting her head. Pt said she made her way home and called the ambulance after realizing she sustained a significant hematoma to her forehead. Denies LOC, injury or pain to any other area, nausea, vomiting, dizziness, change in vision , neck pain or back pain. Time/Duration: Prior to Arrival Symptom Course: Worsening Quality: Aching, Pressure Severity Level: Mild Activities at Onset: Light Context: Walking, Street Past Medical History - Provider Review Nursing Documentation Reviewed: Yes - Travel History Have you recently traveled outside [place] w/in the past 3 mons?: No - Infectious Disease Hx of Infectious Diseases: None - Tetanus Immunization Tetanus Immunization: Unknown - Reproductive Menopause: Yes - Cardiac Hx Angina: Yes Hx Hypertension: Yes - Pulmonary Hx Chronic Obstructive Pulmonary Disease (COPD): Yes - Neurological Hx Dementia: Yes (mild) - HEENT Hx HEENT Disorder: Yes (eyeglasses) Hx Glaucoma: Yes - Musculoskeletal/Rheumatological Hx Falls: Yes - Gastrointestinal Hx Gastrointestinal Disorders: No Hx Constipation: Yes - Genitourinary/Gynecological Hx Genitourinary Disorders: No Hx Reproductive Disorders: No - Psychiatric Hx Anxiety: Yes Hx Depression: No Hx Emotional Abuse: No Hx Physical Abuse: No Hx Substance Use: No - Past Surgical History Past Surgical History: No Previous - Surgical History Hx Tonsillectomy: Yes - Anesthesia Hx Anesthesia: Yes Hx Anesthesia Reactions: No Hx Malignant Hyperthermia: No - Suicidal Assessment Feels Threatened In Home Enviroment: No Family/Social History - Physician Review Nursing Documentation Reviewed: Yes Family/Social History: Unknown Family HX Smoking Status: Former Smoker Hx Alcohol Use: No Hx Substance Use: No Hx Substance Use Treatment: No Allergies/Home Meds Allergies/Adverse Reactions: Allergies FISH Allergy (Severe, Verified 06/22/17 02:46) SWELLING pt reports that she had fish sticks recently and had to come to the hospital due to the swelling pt previously had no allergies sulfur dioxide Allergy (Verified 06/22/17 02:46) ANAPHYLAXIS Review of Systems - Review of Systems Systems not reviewed;Unavailable: Acuity of Condition Constitutional: Normal Eyes: Normal. absent: Vision Changes, Photophobia, Eye Pain ENT: Normal. absent: Hearing Changes, Tinnitus Respiratory: Normal Cardiovascular: Normal. absent: Chest Pain Gastrointestinal: Normal Genitourinary Female: Frequency, Urine Output Changes Musculoskeletal: Normal. absent: Back Pain, Neck Pain Skin: Normal, Other (large bruise on left side of forehead near hairline) Neurological: Normal. absent: Headache, Dizziness, Gait Changes Endocrine: Normal Hemo/Lymphatic: Normal Psychiatric: Normal Physical Exam Vital Signs Reviewed: Yes Vital Signs Temp Pulse Resp BP Pulse Ox 08/09/17 18:16 75 18 158/61 H 99 08/09/17 16:57 79 18 168/64 H 98 08/09/17 15:55 86 18 172/68 H 98 08/09/17 14:51 98.2 F 96 H 18 189/70 H 98 Temperature: Afebrile Blood Pressure: Normal Pulse: Regular Respiratory Rate: Normal Appearance: Positive for: Well-Appearing, Non-Toxic, Comfortable Pain Distress: Mild Mental Status: Positive for: Alert and Oriented X 3 - Systems Exam Head: Present: Normocephalic, Tenderness, Contusion (left forehead approx 4-5cm in diam), Swelling, Ecchymosis (forehead, left side, above brow) Pupils: Present: PERRL Extroacular Muscles: Present: EOMI Conjunctiva: Present: Normal. No: Injected Mouth: Present: Moist Mucous Membranes Nose (External): Present: Atraumatic Nose (Internal): Present: Normal Inspection, No Active Bleeding Neck: Present: Normal Range of Motion Respiratory/Chest: Present: Clear to Auscultation, Good Air Exchange. No: Respiratory Distress, Accessory Muscle Use Cardiovascular: Present: Regular Rate and Rhythm, Normal S1, S2. No: Murmurs Abdomen: Present: Normal Bowel Sounds. No: Tenderness, Distention, Peritoneal Signs Back: Present: Normal Inspection. No: CVA Tenderness Upper Extremity: Present: Normal Inspection, Normal ROM, NORMAL PULSES, Neurovascularly Intact, Capillary Refill < 2s. No: Cyanosis, Edema, Tenderness Lower Extremity: Present: Normal Inspection, NORMAL PULSES, Normal ROM, Neurovascularly Intact, Capillary Refill < 2 s. No: Edema, CALF TENDERNESS Neurological: Present: GCS=15, CN II-XII Intact, Speech Normal, Motor Func Grossly Intact, Normal Sensory Function, Gait Normal (pt walks with kyphotic gait which is her baseline) Skin: Present: Warm, Dry, Normal Color. No: Rashes Psychiatric: Present: Alert, Oriented x 3, Normal Insight, Normal Concentration , Normal Affect Medical Decision Making ED Course and Treatment: 08/09/17 15:22 Pt is a 77 yr old female BIBA for a fall she had today whiile shopping at [employer]. On exam, 5cm raised hematoma on the left forehead, balance and gait intact, pt has kyphotic posture at baseline as per pt and uses AD (cane). Pt appears mildly altered in mentation and does not focus well Plan Head CT Labs Assess and dispo 08/09/17 16:27 Progress Note Spoke with daughter who states mother has been voiding frequently and falling weekly; says her mother does not seen like herself CT unremarkable labs wnl but frequent falls more than likley duet to biomechanical change in posture Advised pt and daughter to see PMD the next day to discuss PT/OT with focus on fall prevention Counseled on AD and home exercises; handout on fall prevention exercises given Pt given tylenol for headache prn VSS on d/c and ambulated well out of ED - Lab Interpretations Lab Results: 08/09/17 15:35 08/09/17 15:35 Lab Results 08/09/17 17:01: Urine Color Yellow, Urine Appearance Clear, Urine pH 6.5, Ur Specific [place] <= 1.005, Urine Protein Negative, Urine Glucose (UA) Negative, Urine Ketones Negative, Urine Blood Negative, Urine Nitrate Negative, Urine Bilirubin Negative, Urine Urobilinogen 0.2, Ur Leukocyte Esterase Negative 08/09/17 15:35: Sodium 142, Potassium 3.9, Chloride 102, Carbon Dioxide 27, Anion Gap 17, BUN 13, Creatinine 0.5 L, Est GFR ( Amer) > 60, Est GFR ( Non-Af Amer) > 60, Random Glucose 102, Calcium 9.6, Total Bilirubin 0.5, AST 27 , ALT 23, Alkaline Phosphatase 72, Total Protein 8.0, Albumin 4.6, Globulin 3.3 , Albumin/Globulin Ratio 1.4 08/09/17 15:35: WBC 8.3 D, RBC 4.92, Hgb 14.4, Hct 43.2, MCV 87.8, MCH 29.3, MCHC 33.3, RDW 14.0, Plt Count 245, MPV 9.2 - RAD Interpretation Narrative RAD Interpretations (Text): 08/09/17 17:56 PROCEDURE: CT HEAD WITHOUT CONTRAST. HISTORY: AMS COMPARISON: 06/13/2017. TECHNIQUE: Axial computed tomography images were obtained through the head/brain without intravenous contrast. Radiation dose: Total exam DLP = 1141.5 by mGy-cm. This CT exam was performed using one or more of the following dose reduction techniques: Automated exposure control, adjustment of the mA and/or kV according to patient size, and/or use of iterative reconstruction technique. FINDINGS: HEMORRHAGE: No intracranial hemorrhage. BRAIN: No mass effect or edema. Cortical atrophy, periventricular small vessel disease. VENTRICLES: Unremarkable. No hydrocephalus. CALVARIUM: Unremarkable. PARANASAL SINUSES: Unremarkable as visualized. No significant inflammatory changes. MASTOID AIR CELLS: Unremarkable as visualized. No inflammatory changes. OTHER FINDINGS: The soft tissue contusion left frontal area. No adjacent calvarial or underlying intracranial abnormality. None. IMPRESSION: No acute intracranial abnormalities. No significant findings to account for the clinical presentation. No significant interval change compared to the prior examination(s). Radiology Orders: 08/09/17 15:09 HEAD W/O CONTRAST [CT] Stat 08/09/17 15:25 CERVICAL SPINE AP & LATERAL [RAD] Stat Disposition/Present on Arrival - Present on Arrival Any Indicators Present on Arrival: Yes History of DVT/PE: No History of Uncontrolled Diabetes: No Urinary Catheter: No History of Decub. Ulcer: No History Surgical Site Infection Following: None - Disposition Have Diagnosis and Disposition been Completed?: Yes Diagnosis: Kyphosis, Traumatic hematoma of forehead, Incontinence Disposition: HOME/ ROUTINE Disposition Time: 17:58 Patient Plan: Discharge Condition: STABLE Discharge Instructions (ExitCare): Headache, Adult, Preventing Falls in the Older Adult, Urinary Incontinence, Female (DC) Additional Instructions: Cammie, thank you for letting us take care of you today. Your provider was NAEL Lal. You were treated for a head injury and bruise. The emergency medical care you received today was directed at your acute symptoms. If you were prescribed any medication, please fill it and take as directed. It may take several days for your symptoms to resolve. Return to the Emergency Department if your symptoms worsen, do not improve, or if you have any other problems. Please follow up with Dr Mosquera in the office in the next 2 days Please contact your doctor or call one of the physicians/clinics you have been referred to that are listed on the Patient Visit Information form that is included in your discharge packet. Bring any paperwork you were given at discharge with you along with any medications you are taking to your follow up visit. Our treatment cannot replace ongoing medical care by a primary care provider (PCP) outside of the emergency department. Thank you for allowing the [facility] team to be part of your care today. If you had an X-Ray or CT scan: A Radiologist will review the ED reading if any change in treatment is needed we will contact you. If you had a blood, urine, or wound culture: It will take several days for the results, if any change in treatment is needed we will contact you. I Prescriptions: Acetaminophen [Acetaminophen Extra Strength] 500 mg PO Q6 5 Days #20 tablet Referrals: Danna Mosquera MD [Primary Care Provider] - Follow up with primary Forms: [employer] (Italian)
[2017-08-09 15:52] LABS: HEMOGLOBIN 14.4 g/dL (12.0-16.0); MEAN CELL VOLUME 87.8 fl (80.0-105.0); MEAN CORPUSCULAR HEMOGLOBIN 29.3 pg (25.0-35.0); MEAN CORPUSCULAR HGB CONC 33.3 g/dl (31.0-37.0); MEAN PLATELET VOLUME 9.2 fl (7.0-11.0); RBC 4.92 10^6/uL (3.5-6.1); WHITE BLOOD COUNT 8.3 10^3/ul (4.5-11.0)
[2017-08-09 16:02] LABS: ALB/GLOB RATIO 1.4 (1.1-1.8); ALBUMIN 4.6 g/dL (3.0-4.8); ALT/SGPT 23 U/L (7-56); AST/SGOT 27 U/L (14-36); BLOOD UREA NITROGEN 13 mg/dL (7-21); CALCIUM 9.6 mg/dL (8.4-10.5); GFR AFRICAN-AMERICAN > 60; GFR NON-AFRICAN AMERICAN > 60
[2017-08-09 17:11] LABS: PH,URINE 6.5 (4.7-8.0); URINE BILIRUBIN NEGATIVE (NEGATIVE); URINE BLOOD NEGATIVE (NEGATIVE); URINE GLUCOSE (UA) NEGATIVE (NEGATIVE); URINE LEUKOCYTE ESTERASE NEGATIVE Leu/uL (NEGATIVE); URINE PROTEIN NEGATIVE mg/dL (<30 mg/dL); URINE UROBILINOGEN 0.2 E.U./dL (<1 E.U./dL)
[2017-08-09 17:14] LABS: URINE APPEARANCE CLEAR (CLEAR); URINE COLOR YELLOW (YELLOW)
--- NOTE | 2017-08-09 18:11 | RAD ---
PROCEDURE: Cervical Spine Radiographs. HISTORY: Posttraumatic pain COMPARISON: None. FINDINGS: BONES: Alignment maintained. No fracture. Dens Intact. DISC SPACES: Multilevel degenerative changes SOFT TISSUES: Normal. No prevertebral soft tissue swelling. OTHER FINDINGS: None. IMPRESSION: No acute findings related to/accounting for the clinical presentation.
[2017-08-09 18:17] VITALS: BP 158/61; PULSE 75; O2SAT 99
--- NOTE | 2017-08-10 09:17 | CT ---
PROCEDURE: CT HEAD WITHOUT CONTRAST. HISTORY: AMS COMPARISON: 06/13/2017. TECHNIQUE: Axial computed tomography images were obtained through the head/brain without intravenous contrast. Radiation dose: Total exam DLP = 1141.5 by mGy-cm. This CT exam was performed using one or more of the following dose reduction techniques: Automated exposure control, adjustment of the mA and/or kV according to patient size, and/or use of iterative reconstruction technique. FINDINGS: HEMORRHAGE: No intracranial hemorrhage. BRAIN: No mass effect or edema. Cortical atrophy, periventricular small vessel disease. VENTRICLES: Unremarkable. No hydrocephalus. CALVARIUM: Unremarkable. PARANASAL SINUSES: Unremarkable as visualized. No significant inflammatory changes. MASTOID AIR CELLS: Unremarkable as visualized. No inflammatory changes. OTHER FINDINGS: The soft tissue contusion left frontal area. No adjacent calvarial or underlying intracranial abnormality. None. IMPRESSION: No acute intracranial abnormalities. No significant findings to account for the clinical presentation. No significant interval change compared to the prior examination(s).
== END 2017-08-09 18:20 | disposition home or self-care (01) ==
LOC: ED 14:17
DX: S00.83XA Contusion of other part of head, initial encounter (principal); W01.0XXA Fall on same level from slipping, tripping and stumbling without subsequent striking against object, initial encounter; Y92.512 Supermarket, store or market as the place of occurrence of the external cause; M40.209 Unspecified kyphosis, site unspecified; R32 Unspecified urinary incontinence; I10 Essential (primary) hypertension; Z87.891 Personal history of nicotine dependence